=== PATIENT | female | born 1955 | race Caucasian/White ===

== ENCOUNTER 2017-10-25 10:37 | Inpatient (IN) ==
[2017-10-25] MEDS ORDERED: Sennosides 8.6 MG TABLET PO PRN ×2 (16:13→17:32)
[2017-10-25] MEDS ORDERED: LACTULOSE 10 GM PO PRN (16:13)
[2017-10-25] MEDS ORDERED: Lactulose Oral Soln 20 GM/30 ML UDC PO PRN (17:32)
--- NOTE | 2017-10-25 18:03 | Internal Med History&Physical ---
Date of Encounter: 10/25/17 Time of Encounter: 20:11 Assessment and Plan (1) S/P craniotomy Current visit: Yes Status: Acute she has an abnormal gait and expressive aphasia. she is here for rehab. will consult, pt, ot, st, PMR. (2) Oligodendroglioma Current visit: Yes Status: Acute Status post craniotomy (3) Chronic constipation Current visit: Yes Status: Acute will continue her home bowel regimen (4) Mixed hyperlipidemia Current visit: Yes Status: Acute (5) Osteoporosis Current visit: Yes Status: Acute calcium vit d Qualifiers: Osteoporosis type: unspecified Encounter type: sequela Qualified Code(s) : M80.00XS - Age-related osteoporosis with current pathological fracture, unspecified site, sequela (6) CRF (chronic renal failure) Current visit: Yes Status: Acute will follow Qualifiers: Chronic kidney disease stage: stage 2 (mild) Qualified Code(s): N18.2 - Chronic kidney disease, stage 2 (mild) (7) Expressive aphasia Current visit: Yes Status: Acute will consult speech and PMR (8) Seizure disorder Current visit: Yes Status: Acute will continue her home medication. some changes have been made at [facility]. she frequently will have seizures. they last 1-2 min. she will be unresponsive, not tonic clonic, she will have more trouble with speech after. she has been following with [facility] neuro for years. 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 Internal Medicine - H&P: HPI Chief complaint: here for rehab Admitted From: Direct Admit Plans for Post Hospital Care: Home History of present illness: Ms. Moses is a 61 year old female She came from [facility] after having a craniotomy on October 22 for an oliodendroglioma. She had it resected in 1993 and it had chemotherapy for. She then had a recurrence of the tumor and had some chemotherapy. She continued to get worse with more frequent absent seizures. She was having them daily. She has not had one since she had her craniotomy. She had some vision changes prior to the surgery does have continued and have not changed since the surgery. She currently does not have any pain. She has only had one Percocet the day of surgery for pain and none since. She has some right-sided weakness prior to surgery and that has not changed either. Prior to surgery she was living at home with someone staying with her. She is a hospital volunteer. She does not drive. She does not have tonic-clonic seizures. She has a history of chronic constipation and that has not changed. She is here for rehabilitation Past Med Surg Social Fam HX - Past Medical History Medical history: cancer (oligodendroglioma resected recurred had chemo and now with repeat craniotomy), hyperlipidemia, osteoporosis, renal disease ( asymmetric kidneys), seizures (speech, not tonic clonic), other (expressive aphasia, chronic constipation, uterine prolapse, rotator cuff, gait abnormality. cervical disc disease, colon polyps) Psychiatric history: no psych history - Past Surgical History Surgical History: orthopedic, other (right radial orif 10/25/16), other ( craniotomy 04/1994, repeat craniotomy 10/2017, colonoscopy normal 09/22/04, endometrial bx 04/29/07 colonoscopy 11/25/09 polyp, BPS 1989, cervical polyps, colonoscopy 07/21/14, ) - Social History Smoking Status: Never smoker Smokeless Tobacco Status: No Alcohol use: none Drug use: none - Family History Mother Hx Family Cardiac Disorders: Yes (htn) Hx Family Endocrine Disorder: Yes (dm) Father Living Status: Hx Family Cancer: Yes (colon) Brother Hx Family Cancer: Yes (melenoma) Internal Medicine - H&P: Meds Calcium Carbonate/Vitamin D3 [Calcium 600 + Vit D Tablet] 1 each PO BID [History] Clobazam [Onfi] 5 mg PO DAILY 10/25/16 [History] Lacosamide [Vimpat] 100 mg PO BID 10/25/16 [History] LevETIRAcetam [Keppra] 750 mg PO BID 10/25/16 [History] [place]-3/Dha/Epa/Fish Oil [Fish Oil [place]-3 EC 1,200 mg] 1,000 mg PO BID [History] Pregabalin [Lyrica] 300 mg PO BID 10/25/16 [History] lamoTRIgine [Lamotrigine] 100 mg PO BID 10/25/16 [History] Bisacodyl [Dulcolax] 5 mg PO DAILY PRN 10/25/17 [History] Cholecalciferol (Vitamin D3) [Vitamin D] 1,000 unit PO BID 10/25/17 [History] Lactulose [Enulose] 10 gm PO DAILY PRN 10/25/17 [History] Polyethylene Glycol 3350 [MiraLAX] 1 pack PO DAILY 10/25/17 [History] Sennosides [Senna] 8.6 mg PO BID PRN 10/25/17 [History] 3 Allergy/AdvReac Type Severity Reaction Status Date / Time divalproex sodium Allergy Anaphylaxis Verified 12/11/16 19:30 [From Depakote] All Systems PM: A 10-system review of systems was performed and is negative for pertinent findings except as documented above in the HPI. - Constitutional Constitutional: fatigue, falls, weakness (right sided), no fever(s) - EENT Eyes: change in vision (prior to surgery no change after surgery) Nose, mouth and throat: no sore throat - Cardiovascular Cardiovascular ROS IM: lightheadedness (with standing), no chest pain, no dyspnea, no edema, no syncope - Respiratory Respiratory: no cough, no dyspnea, no wheezing - Gastrointestinal Gastrointestinal: constipation (chronic), no diarrhea, no hematochezia, no melena, no nausea, no vomiting - Genitourinary Genitourinary: prolapse symptoms, no dysuria, no hematuria, no urinary urgency - Musculoskeletal Musculoskeletal ROS IM: no myalgias, no tingling - Integumentary Integumentary IM: no pruritus, no rash - Neurological Neurological ROS: abnormal gait, abnormal speech (but aphasia is significantly improved since the surgery) - Constitutional Vitals: Temp Pulse Resp BP Pulse Ox 97.6 F 66 16 92/66 94 10/25/17 15:55 10/25/17 15:55 10/25/17 15:55 10/25/17 15:55 10/25/17 15:55 General appearance: Present: A&O X 3, pleasant, answers questions appropriately - Head Head exam: Present: normocephalic (craniotomy scar across the top of head with morgan c/d/i) - Neck Neck exam general surgery: Present: normal inspection, supple, trachea midline. Absent: lymphadenopathy - Respiratory Respiratory exam: Present: CTAB. Absent: accessory muscle use - Cardiovascular Cardiovascular exam: Present: RRR, +S1, +S2. Absent: systolic murmur - GI/Abdominal GI/Abdominal exam: Present: distended, normal bowel sounds, soft, no peritoneal signs. Absent: tenderness - Extremities Exam Extremities exam: Present: normal capillary refill, warm. Absent: pedal edema - Neurological Exam Neurological exam: Present: speech deficit (but much improved from prior to surgery). 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 Absent: rash
[2017-10-25] MEDS: Cholecalciferol (D-3) 1,000 UNIT TABLET PO SCH (20:42)
[2017-10-25] MEDS ORDERED: LACOSAMIDE 100 MG PO SCH (21:00)
[2017-10-25] MEDS ORDERED: levETIRAcetam 250 MG TABLET PO SCH (21:00)
[2017-10-25] MEDS ORDERED: lamoTRIgine 100 MG TABLET PO ONE (21:00)
[2017-10-25 21:24] LABS: Bilirubin,Urine Negative (Negative); Blood,Urine Negative (Negative); Clarity,Urine Clear (Clear); Color,Urine Yellow (Yellow); Glucose,Urine (UA) Normal (Normal); Ketones,Urine Negative (Negative); Leukocyte Esterase,Urine Trace (Negative); Nitrite,Urine Negative (Negative); Protein,Urine Negative (Neg-Trace); Specific Gravity,Urine 1.015 (1.010-1.025); Urobilinogen,Urine Normal (Normal)
[2017-10-25 21:36] LABS: Bacteria,Urine Few per hpf (None-Few); Squamous Epithelial Cell,Urine Few per lpf (None-Few)
[2017-10-25] MEDS: levETIRAcetam 250 MG TABLET PO SCH (21:53)
[2017-10-25] MEDS: Pregabalin 75 MG CAPSULE PO SCH (21:54)
[2017-10-25] MEDS: lamoTRIgine 100 MG TABLET PO SCH (21:54)
[2017-10-25] MEDS: Famotidine 20 MG TABLET PO SCH (21:56)
[2017-10-25] MEDS: DHA PO SCH (21:57)
[2017-10-25] MEDS: EPA PO SCH (21:57)
[2017-10-25] MEDS: FISH OIL PO SCH (21:57)
[2017-10-25] MEDS: OMEGA PO SCH (21:57)
[2017-10-25] MEDS: Melatonin 3 MG TABLET PO PRN (22:01)
[2017-10-26] MEDS: *HR* Enoxaparin 40 MG/0.4 ML SYRINGE SQ SCH (05:12)
[2017-10-26 06:05] LABS: INR 1.1; Prothrombin Time 11.3 Seconds (9.4-12.1)
[2017-10-26 06:17] LABS: BUN/Creatinine Ratio 24 (6-26); Blood Urea Nitrogen 20 mg/dL (8-23); Calcium 8.8 mg/dL (8.6-10.3); Carbon Dioxide 29 mEq/L (23-29); Chloride 106 mEq/L (98-107); Glucose 114 mg/dL (70-105); Osmolality,Calculated 293 (280-300); Potassium 3.8 mEq/L (3.5-5.1); Sodium 140 mEq/L (136-145); eGFR For African Americans > 60 (> 60); eGFR For Non-African Americans > 60 (> 60)
[2017-10-26 06:22] LABS: Basophils % 0.4 %; Eosinophils % 0.2 %; Hematocrit 31.6 % (35.3-44.9); Hemoglobin 10.2 g/dL (11.5-15.4); Immature Granulocytes % 0.7 % (0-4); Lymphocytes # 0.9 K/mcL (0.6-4.6); Lymphocytes % 15.7 %; Mean Corpuscular HGB Conc 32.3 g/dL (31.6-35.5); Mean Corpuscular Hemoglobin 29.8 pg (28.0-33.3); Mean Corpuscular Volume 92.4 fL (83.0-100.0); Mean Platelet Volume 12.5 fL (9.4-12.4); Monocytes # 0.4 K/mcL (0.0-1.3); Monocytes % 6.5 %; Neutrophils # 4.3 K/mcL (1.6-8.9); Platelet Count 181 K/mcL (140-400); Red Blood Count 3.42 M/mcL (3.82-4.97); Red Cell Distribution Width 12.9 % (11.5-14.5); Segmented Neutrophils % 76.5 %
--- NOTE | 2017-10-26 08:03 | Internal Med Progress Note ---
Date of Encounter: 10/26/17 Time of Encounter: 08:03 - Assessment and plan (1) S/P craniotomy Current Visit: Yes Status: Acute Assessment and plan: Doing well, postoperatively. Participating in therapy. OT and PT are planned. (2) Oligodendroglioma Current Visit: Yes Status: Acute Assessment and plan: No seizures, postoperatively, at all. To resume monitoring and therapy as previous, as recovery continues. (3) Seizure disorder Current Visit: Yes Status: Acute Assessment and plan: As above, no seizures. Will continue with seizure precautions. (4) Chronic constipation Current Visit: Yes Status: Acute Assessment and plan: Will follow. (5) Expressive aphasia Current Visit: Yes Status: Acute Assessment and plan: No evidence, currently. - Subjective Interval history: No problems with headache, other scalp pain, etc. Asks about showering and I suggested at least 7-10 days postop. Will follow incisional progress. No troubles with lightheadedness or dizziness but does have issues with unsteady gait. Participating in therapy. She is pleased that she has had no seizures, postoperatively. She had been having them multiple times a day, before. Patient has no complaint of chest discomfort, dyspnea, orthopnea, palpitations, nausea or vomiting, constipation or diarrhea, other changes in bowel habits, difficulty with urination, rash or itching, or other new complaints. Review of systems is otherwise unremarkable. Examinatioin: (Except as mentioned above): General: In no apparent distress. Alert and oriented 3. Nondiaphoretic. Head : Atraumatic and normocephalic. Respiratory: No use of accessory muscles. Lungs are clear throughout. Normal airflow. Cardiovascular: Regular rate and rhythm without murmur appreciated. Abdomen: Bowel sounds are normal. No hepatosplenomegaly mass or tenderness appreciated. Obese and therefore difficult to palpate deeply. Extremities: No cyanosis clubbing or edema. Skin: Warm and non-diaphoretic with no new lesions noted. - Constitutional Vitals: Temp Pulse Resp BP Pulse Ox 98.6 F 75 14 96/58 95 10/26/17 04:00 10/26/17 04:00 10/26/17 04:00 10/26/17 04:00 10/26/17 04:00 General appearance: Present: A&O X 3, pleasant, answers questions appropriately - Head Head exam: Present: atraumatic, normal inspection, normocephalic Additional comments: No sign of erythema, drainage, other indications of cellulitis or wound infection. - Respiratory Respiratory exam: Present: CTAB. Absent: accessory muscle use - Cardiovascular Cardiovascular exam: Present: RRR. Absent: diastolic murmur, systolic murmur - GI/Abdominal GI/Abdominal exam: Present: normal bowel sounds, soft. Absent: hepatomegaly, mass, splenomegaly, tenderness - Extremities Exam Extremities exam: Present: normal capillary refill, warm. Absent: calf tenderness, pedal edema - Neurological Exam Neurological exam: Present: CN II-XII intact, oriented X3. Absent: pronater drift, facial droop, speech deficit - Skin Skin exam: Present: dry, warm Internal Medicine: Result - Labs CBC & Chem 7: 10/26/17 05:40 10/26/17 05:40 Labs: Short CBC 10/26/17 Range/Units 05:40 WBC 5.7 (4.3-11.1) K/mcL Hgb 10.2 L (11.5-15.4) g/dL Hct 31.6 L (35.3-44.9) % Plt Count 181 (140-400) K/mcL Neutrophils # 4.3 (1.6-8.9) K/mcL BMP 10/26/17 05:40 Sodium 140 Potassium 3.8 Chloride 106 Carbon Dioxide 29 BUN 20 Creatinine 0.85 Glucose 114 H Calcium 8.8 Urine 10/25/17 Range/Units 21:20 Urine Color Yellow (Yellow) Urine Clarity Clear (Clear) Urine pH 6.0 (5.0-8.0) pH Units Ur Specific [place] 1.015 (1.010-1.025) Urine Protein Negative (Neg-Trace) mg/dL Urine Glucose (UA) Normal (Normal) mg/dL - ABG Interpretation ABG results: PT/INR, D-dimer PT 11.3 Seconds (9.4-12.1) 10/26/17 05:40 Consult Discharge Plan - Plan Referrals: Arlyn Espinal MD [Primary Care Provider] -
[2017-10-26] MEDS: Cholecalciferol (D-3) 1,000 UNIT TABLET PO SCH (09:43)
[2017-10-26] MEDS: levETIRAcetam 250 MG TABLET PO SCH ×4 (09:44→21:01)
[2017-10-26] MEDS: Pregabalin 75 MG CAPSULE PO SCH ×2 (09:44→21:02)
[2017-10-26] MEDS: Famotidine 20 MG TABLET PO SCH ×2 (09:44→16:21)
[2017-10-26] MEDS: lamoTRIgine 100 MG TABLET PO SCH ×2 (09:45→21:02)
[2017-10-26] MEDS: EPA PO SCH ×2 (09:47→21:08)
[2017-10-26] MEDS: FISH OIL PO SCH ×2 (09:47→21:08)
[2017-10-26] MEDS: Clobazam [Onfi] 10 MG PO SCH (09:47)
[2017-10-26] MEDS: DHA PO SCH ×2 (09:47→21:08)
[2017-10-26] MEDS: OMEGA PO SCH ×2 (09:47→21:08)
[2017-10-27] MEDS: *HR* Enoxaparin 40 MG/0.4 ML SYRINGE SQ SCH (05:02)
[2017-10-27] MEDS: Famotidine 20 MG TABLET PO SCH ×2 (06:32→17:26)
[2017-10-27] MEDS: Acetaminophen 325 MG TABLET PO PRN (06:33)
[2017-10-27] MEDS: Pregabalin 75 MG CAPSULE PO SCH ×2 (08:44→20:41)
[2017-10-27] MEDS: levETIRAcetam 250 MG TABLET PO SCH ×4 (08:44→20:39)
[2017-10-27] MEDS: FISH OIL PO SCH ×2 (08:48→20:42)
[2017-10-27] MEDS: OMEGA PO SCH ×2 (08:48→20:42)
[2017-10-27] MEDS: DHA PO SCH ×2 (08:48→20:42)
[2017-10-27] MEDS: EPA PO SCH ×2 (08:48→20:42)
[2017-10-27] MEDS: lamoTRIgine 100 MG TABLET PO SCH (08:49)
[2017-10-27] MEDS: Cholecalciferol (D-3) 1,000 UNIT TABLET PO SCH (08:50)
[2017-10-27] MEDS: Clobazam [Onfi] 10 MG PO SCH (08:50)
--- NOTE | 2017-10-27 17:52 | Internal Med Progress Note ---
Date of Encounter: 10/27/17 Time of Encounter: 17:51 - Assessment and plan (1) S/P craniotomy Current Visit: Yes Status: Acute Assessment and plan: Doing well, postoperatively. Participating in therapy as planned. (2) Oligodendroglioma Current Visit: Yes Status: Acute Assessment and plan: No seizures reported. (3) Seizure disorder Current Visit: Yes Status: Acute Assessment and plan: As above, no seizures. Will continue with seizure precautions. Medication adjustments as noted above, per her request. (4) Chronic constipation Current Visit: Yes Status: Acute Assessment and plan: We will use a Dulcolax suppository daily for 3 days, per her request. This will be on an as-needed basis (5) Expressive aphasia Current Visit: Yes Status: Acute Assessment and plan: No evidence, currently. - Time Spent With Patient 25 - 35 minutes - Subjective Interval history: Patient is feeling constipated and has had only 3 small hard fragments of bowel movement. She would very much like a suppository and I told her we would order. She still feeling unsteady and feels it is related to her medications. She would like to have her Lamictal return to her home dose. I agreed to do this. We discussed several other medications including her Pepcid that she took only on an as-needed basis home. I agreed to return this to as needed status. Patient has no complaint of chest discomfort, dyspnea, orthopnea, palpitations, nausea or vomiting, constipation or diarrhea, other changes in bowel habits, difficulty with urination, rash or itching, or other new complaints. Review of systems is otherwise unremarkable. - Constitutional Vitals: Temp Pulse Resp BP Pulse Ox 98.2 F 63 16 104/67 96 10/27/17 08:00 10/27/17 08:00 10/27/17 08:00 10/27/17 08:00 10/27/17 08:00 General appearance: Present: A&O X 3, pleasant, answers questions appropriately Exam: Examinatioin: (Except as mentioned above): General: In no apparent distress. Alert and oriented 3. Nondiaphoretic. Head: Atraumatic and normocephalic. Postsurgical, dry and intact wound. Rafael as noted previously. Respiratory: No use of accessory muscles. Lungs are clear throughout. Normal airflow. Cardiovascular: Regular rate and rhythm without murmur appreciated. Abdomen: Bowel sounds are normal. No hepatosplenomegaly mass or tenderness appreciated. Obese and therefore difficult to palpate deeply. Extremities: No cyanosis clubbing or edema. Skin: Warm and non-diaphoretic with no new lesions noted. Internal Medicine: Result - Labs CBC & Chem 7: 10/26/17 05:40 10/26/17 05:40 - ABG Interpretation ABG results: PT/INR, D-dimer PT 11.3 Seconds (9.4-12.1) 10/26/17 05:40 Consult Discharge Plan - Plan Referrals: Arlyn Espinal MD [Primary Care Provider] -
[2017-10-27] MEDS ORDERED: Bisacodyl 10 MG RECTAL SUPPOSITORY RC PRN (19:23)
[2017-10-27] MEDS ORDERED: lamoTRIgine 100 MG TABLET PO ONE (21:00)
[2017-10-27] MEDS ORDERED: lamoTRIgine 100 MG TABLET PO SCH (21:00)
[2017-10-28] MEDS: *HR* Enoxaparin 40 MG/0.4 ML SYRINGE SQ SCH (05:12)
--- NOTE | 2017-10-28 08:30 | Internal Med Progress Note ---
Date of Encounter: 10/28/17 Time of Encounter: 08:30 - Assessment and plan (1) S/P craniotomy Current Visit: Yes Status: Acute Assessment and plan: Doing well, postoperatively. Participating in therapy as planned. d/c when she meets goals to be safe at home (2) Oligodendroglioma Current Visit: Yes Status: Acute Assessment and plan: No seizures reported since surgery (3) Chronic constipation Current Visit: Yes Status: Acute Assessment and plan: We will use a Dulcolax suppository daily for 3 days, per her request. This will be on an as-needed basis. she did have a large stool yesterday and feels better (4) Mixed hyperlipidemia Current Visit: Yes Status: Acute (5) Osteoporosis Current Visit: Yes Status: Acute Qualifiers: Osteoporosis type: unspecified Encounter type: sequela Qualified Code(s) : M80.00XS - Age-related osteoporosis with current pathological fracture, unspecified site, sequela (6) CRF (chronic renal failure) Current Visit: Yes Status: Acute Assessment and plan: renal function in range on last labs Qualifiers: Chronic kidney disease stage: stage 2 (mild) Qualified Code(s): N18.2 - Chronic kidney disease, stage 2 (mild) (7) Expressive aphasia Current Visit: Yes Status: Acute Assessment and plan: much improved since surgery ST. (8) Seizure disorder Current Visit: Yes Status: Acute Assessment and plan: As above, no seizures. Will continue with seizure precautions. Medication adjustments as noted above, per her request.she is osmel tired with lowering the dose - Subjective Interval history: she has been doing well no pain. she is in the dining room for breakfast. she did have a large stool and feels better. no n/v, no sob, no cp, no dysuria. using the walker. she was getting too sleepy with the new lamictal dose. she has not had a seizure since surg and was having daily prior to surg when the medication was increased. the dose was lowered yesterday. will continue to follow - Constitutional Vitals: Temp Pulse Resp BP Pulse Ox 98.4 F 78 19 100/68 94 10/28/17 05:56 10/28/17 05:56 10/28/17 05:56 10/28/17 05:56 10/28/17 05:56 General appearance: Present: A&O X 3, pleasant, answers questions appropriately - Head Head exam: Absent: atraumatic (surgical incision with morgan c/d/i) - Neck Neck exam general surgery: Present: supple, trachea midline - Respiratory Respiratory exam: Present: CTAB - Cardiovascular Cardiovascular exam: Present: RRR. Absent: systolic murmur - GI/Abdominal GI/Abdominal exam: Present: mass, normal bowel sounds, soft, no peritoneal signs. Absent: distended - Extremities Exam Extremities exam: Present: normal capillary refill, warm. Absent: pedal edema - Skin Skin exam: Present: dry, warm Internal Medicine: Result - Labs CBC & Chem 7: 10/26/17 05:40 10/26/17 05:40 - ABG Interpretation ABG results: PT/INR, D-dimer PT 11.3 Seconds (9.4-12.1) 10/26/17 05:40 Consult Discharge Plan - Plan Referrals: Arlyn Espinal MD [Primary Care Provider] -
[2017-10-28] MEDS: Pregabalin 75 MG CAPSULE PO SCH ×2 (08:53→21:33)
[2017-10-28] MEDS: Cholecalciferol (D-3) 1,000 UNIT TABLET PO SCH (08:54)
[2017-10-28] MEDS: levETIRAcetam 250 MG TABLET PO SCH ×4 (08:54→21:32)
[2017-10-28] MEDS: DHA PO SCH (08:56)
[2017-10-28] MEDS: FISH OIL PO SCH (08:56)
[2017-10-28] MEDS: OMEGA PO SCH (08:56)
[2017-10-28] MEDS: EPA PO SCH (08:56)
[2017-10-28] MEDS: Famotidine 20 MG TABLET PO PRN (09:31)
[2017-10-28] MEDS: Clobazam [Onfi] 10 MG PO SCH (09:32)
--- NOTE | 2017-10-28 17:06 | Physcial Medicine-Consult Note ---
Date of Encounter: 10/28/17 Time of Encounter: 15:05 Physical Medicine - HPI - Data of Consult Requesting Physician: Arlyn Espinal, Primary Care Provider: Arlyn Espinal, - Consult Narrative History of present illness: Ms. Moses is a 61 year old female with Glioma. She had a surgical resection in 2003. Over the last year she had increase seizures and increase in unsteady gait with falling. She was found to have recurrent glioma and had resection on . She was found to have poor right sided control, and aphasia, expressive more than receptive. She has chronic constipation and moved her bowels last night. She denies any visual change or numbness. CC: Arlyn Espinal, Past Med Surg Social Fam HX - Past Medical History Attestation: Yes The following information was validated with the patient. Medical history: cancer (oligodendroglioma resected recurred had chemo and now with repeat craniotomy), hyperlipidemia, osteoporosis, renal disease ( asymmetric kidneys), seizures (speech, not tonic clonic), other (expressive aphasia, chronic constipation, uterine prolapse, rotator cuff, gait abnormality. cervical disc disease, colon polyps) Psychiatric history: no psych history - Past Surgical History Surgical History: orthopedic, other (right radial orif 10/25/16), other ( craniotomy 04/1994, repeat craniotomy 10/2017, colonoscopy normal 09/22/04, endometrial bx 04/29/07 colonoscopy 11/25/09 polyp, BPS 1989, cervical polyps, colonoscopy 07/21/14, ) - Social History Smoking Status: Never smoker Smokeless Tobacco Status: No Alcohol use: none Drug use: none - Family History Mother Hx Family Cardiac Disorders: Yes (htn) Hx Family Endocrine Disorder: Yes (dm) Father Living Status: Hx Family Cancer: Yes (colon) Brother Hx Family Cancer: Yes (melenoma) Medications and Allergies Calcium Carbonate/Vitamin D3 [Calcium 600 + Vit D Tablet] 1 each PO BID [History] Clobazam [Onfi] 5 mg PO DAILY 10/25/16 [History] Lacosamide [Vimpat] 50 mg PO QID 10/25/16 [History] LevETIRAcetam [Keppra] 750 mg PO QID 10/25/16 [History] [place]-3/Dha/Epa/Fish Oil [Fish Oil [place]-3 EC 1,200 mg] 1,000 mg PO BID [History] Pregabalin [Lyrica] 300 mg PO BID 10/25/16 [History] lamoTRIgine [Lamotrigine] 100 mg PO BID 10/25/16 [History] Bisacodyl [Dulcolax] 5 mg PO DAILY PRN 10/25/17 [History] Cholecalciferol (Vitamin D3) [Vitamin D] 1,000 unit PO BID 10/25/17 [History] Lactulose [Enulose] 10 gm PO DAILY PRN 10/25/17 [History] Polyethylene Glycol 3350 [MiraLAX] 1 pack PO DAILY 10/25/17 [History] Sennosides [Senna] 8.6 mg PO BID PRN 10/25/17 [History] 3 Allergy/AdvReac Type Severity Reaction Status Date / Time divalproex sodium Allergy Anaphylaxis Verified 12/11/16 19:30 [From [facility]] All systems: reviewed and no additional remarkable complaints except as stated ( Trouble with balance and aphasia.) Physical Medicine - Exam - Constitutional Vitals: Temp Pulse Resp BP Pulse Ox 98.4 F 78 19 100/68 94 10/28/17 05:56 10/28/17 10:19 10/28/17 10:19 10/28/17 10:19 10/28/17 10:19 - Head Additional comments: 20 morgan in left occipital to vertex. - Extremities Exam Extremities exam: Present: full ROM, normal inspection - Neurological Exam Neurological exam: Present: abnormal gait, alert, CN II-XII intact, oriented X3 , strengths equal and symetr throughout - Psychiatric Psychiatric exam: Present: normal affect, normal mood - Skin Skin exam: Present: intact Physical Medicine - Results - Labs CBC & Chem 7: 10/26/17 05:40 10/26/17 05:40 Consult Discharge Plan - Plan Referrals: Arlyn Espinal MD [Primary Care Provider] -
--- NOTE | 2017-10-28 17:20 | Physcial Medicine-Consult Note ---
Date of Encounter: 10/28/17 Time of Encounter: 15:05 Physical Medicine - AP (1) Chronic constipation Status: Acute Assessment and plan: Bowel program. Goal is for BM every third day or less. Code(s): K59.09 - Other constipation SNOMED Code(s): 581564695 (2) Expressive aphasia Comments: Continue speech therapy Status: Acute Code(s): R47.01 - Aphasia SNOMED Code(s): 174428382 (3) Oligodendroglioma Comments: Brain injury with poor balance, impaired right sided control, global aphasia, expressive worse than receptive. Status: Acute Code(s): C71.9 - Malignant neoplasm of brain, unspecified SNOMED Code(s): 988306442 Physical Medicine - HPI - Data of Consult Requesting Physician: Arlyn Espinal, Primary Care Provider: Arlyn Espinal, - Consult Narrative History of present illness: Ms. Moses is a 61 year old female CC: Arlyn Espinal, Past Med Surg Social Fam HX - Past Medical History Medical history: cancer (oligodendroglioma resected recurred had chemo and now with repeat craniotomy), hyperlipidemia, osteoporosis, renal disease ( asymmetric kidneys), seizures (speech, not tonic clonic), other (expressive aphasia, chronic constipation, uterine prolapse, rotator cuff, gait abnormality. cervical disc disease, colon polyps) Psychiatric history: no psych history - Past Surgical History Surgical History: orthopedic, other (right radial orif 10/25/16), other ( craniotomy 04/1994, repeat craniotomy 10/2017, colonoscopy normal 09/22/04, endometrial bx 04/29/07 colonoscopy 11/25/09 polyp, BPS 1989, cervical polyps, colonoscopy 07/21/14, ) - Social History Smoking Status: Never smoker Smokeless Tobacco Status: No Alcohol use: none Drug use: none - Family History Mother Hx Family Cardiac Disorders: Yes (htn) Hx Family Endocrine Disorder: Yes (dm) Father Living Status: Hx Family Cancer: Yes (colon) Brother Hx Family Cancer: Yes (melenoma) Medications and Allergies Calcium Carbonate/Vitamin D3 [Calcium 600 + Vit D Tablet] 1 each PO BID [History] Clobazam [Onfi] 5 mg PO DAILY 10/25/16 [History] Lacosamide [Vimpat] 50 mg PO QID 10/25/16 [History] LevETIRAcetam [Keppra] 750 mg PO QID 10/25/16 [History] [place]-3/Dha/Epa/Fish Oil [Fish Oil [place]-3 EC 1,200 mg] 1,000 mg PO BID [History] Pregabalin [Lyrica] 300 mg PO BID 10/25/16 [History] lamoTRIgine [Lamotrigine] 100 mg PO BID 10/25/16 [History] Bisacodyl [Dulcolax] 5 mg PO DAILY PRN 10/25/17 [History] Cholecalciferol (Vitamin D3) [Vitamin D] 1,000 unit PO BID 10/25/17 [History] Lactulose [Enulose] 10 gm PO DAILY PRN 10/25/17 [History] Polyethylene Glycol 3350 [MiraLAX] 1 pack PO DAILY 10/25/17 [History] Sennosides [Senna] 8.6 mg PO BID PRN 10/25/17 [History] 3 Allergy/AdvReac Type Severity Reaction Status Date / Time divalproex sodium Allergy Anaphylaxis Verified 12/11/16 19:30 [From [facility]] Physical Medicine - Exam - Constitutional Vitals: Temp Pulse Resp BP Pulse Ox 98.4 F 78 19 100/68 94 10/28/17 05:56 10/28/17 10:19 10/28/17 10:19 10/28/17 10:19 10/28/17 10:19 Physical Medicine - Results - Labs CBC & Chem 7: 10/26/17 05:40 10/26/17 05:40 Labs: Anemia Consult Discharge Plan - Plan Referrals: Arlyn Espinal MD [Primary Care Provider] -
[2017-10-28] MEDS: lamoTRIgine 100 MG TABLET PO SCH (21:32)
[2017-10-29] MEDS: *HR* Enoxaparin 40 MG/0.4 ML SYRINGE SQ SCH (05:36)
[2017-10-29] MEDS: Cholecalciferol (D-3) 1,000 UNIT TABLET PO SCH (08:36)
[2017-10-29] MEDS: Clobazam [Onfi] 10 MG PO SCH (08:36)
[2017-10-29] MEDS: levETIRAcetam 250 MG TABLET PO SCH ×4 (08:36→20:25)
[2017-10-29] MEDS: Pregabalin 75 MG CAPSULE PO SCH ×2 (08:36→20:26)
[2017-10-29] MEDS: Famotidine 20 MG TABLET PO PRN (08:37)
--- NOTE | 2017-10-29 19:29 | Internal Med Progress Note ---
Date of Encounter: 10/29/17 Time of Encounter: 16:15 - Assessment and plan (1) S/P craniotomy Current Visit: Yes Status: Acute Assessment and plan: here for pt/ot (2) Oligodendroglioma Current Visit: Yes Status: Acute Assessment and plan: path is pending. she will likely get at her f/u appt (3) Chronic constipation Current Visit: Yes Status: Acute Assessment and plan: better after the supp. (4) Mixed hyperlipidemia Current Visit: Yes Status: Acute (5) Osteoporosis Current Visit: Yes Status: Acute Qualifiers: Osteoporosis type: unspecified Encounter type: sequela Qualified Code(s) : M80.00XS - Age-related osteoporosis with current pathological fracture, unspecified site, sequela (6) CRF (chronic renal failure) Current Visit: Yes Status: Acute Qualifiers: Chronic kidney disease stage: stage 2 (mild) Qualified Code(s): N18.2 - Chronic kidney disease, stage 2 (mild) (7) Expressive aphasia Current Visit: Yes Status: Acute Assessment and plan: continue ST (8) Seizure disorder Current Visit: Yes Status: Acute Assessment and plan: doing ok with the current medication dose. will cont. no seizure since surgery will continue seizure precautions - Subjective Interval history: she has been doing well no pain. She has been getting up walking about the room without assistance for getting to hit her call light before getting up. discussed that she needs to call for assistance to get up. her speech is so much better. she is getting around with the walker. no cp, no palp,no sob, no n/v, abd better after large stool 2 days ago - Constitutional Vitals: Temp Pulse Resp BP Pulse Ox 98.3 F 74 16 86/58 97 10/29/17 09:14 10/29/17 09:14 10/29/17 09:14 10/29/17 09:14 10/29/17 09:14 General appearance: Present: A&O X 3, pleasant, answers questions appropriately - Head Head exam: Present: atraumatic (incision c/d/i with the morgan) - Neck Neck exam general surgery: Present: supple, trachea midline. Absent: lymphadenopathy, tenderness - Respiratory Respiratory exam: Present: CTAB - Cardiovascular Cardiovascular exam: Present: RRR. Absent: systolic murmur - Extremities Exam Extremities exam: Present: normal capillary refill. Absent: mottling, pedal edema - Skin Skin exam: Present: dry, warm Internal Medicine: Result - Labs CBC & Chem 7: 10/26/17 05:40 10/26/17 05:40 - ABG Interpretation ABG results: PT/INR, D-dimer PT 11.3 Seconds (9.4-12.1) 10/26/17 05:40 Consult Discharge Plan - Plan Referrals: Arlyn Espinal MD [Primary Care Provider] -
[2017-10-29] MEDS: lamoTRIgine 100 MG TABLET PO SCH (20:25)
[2017-10-30] MEDS: *HR* Enoxaparin 40 MG/0.4 ML SYRINGE SQ SCH (05:01)
[2017-10-30] MEDS: Cholecalciferol (D-3) 1,000 UNIT TABLET PO SCH (09:43)
[2017-10-30] MEDS: levETIRAcetam 250 MG TABLET PO SCH ×4 (09:44→20:40)
[2017-10-30] MEDS: Pregabalin 75 MG CAPSULE PO SCH ×2 (09:44→20:42)
[2017-10-30] MEDS: Clobazam [Onfi] 10 MG PO SCH (09:44)
--- NOTE | 2017-10-30 18:21 | Physical Med Progress Note ---
Date of Encounter: 10/30/17 Time of Encounter: 15:50 Assessment and Plan (1) Chronic constipation Current Visit: Yes Status: Acute Assessment and plan: Bowel program (2) Expressive aphasia Current Visit: Yes Status: Acute Assessment and plan: Continue speech therapy. May be worthwhile to refer for cognitive performance testing with neuropsych (3) Oligodendroglioma Current Visit: Yes Status: Acute Assessment and plan: Post op brain impairment Physical Medicine-PN: Subj Interval history: No c/o. Feels good. - Constitutional Vitals: Vital Signs Temp Pulse Resp BP Pulse Ox 10/30/17 07:07 97.6 F 70 16 107/71 98 10/29/17 19:30 98.3 F 79 18 125/73 97 Intake and Output 10/30/17 10/30/17 10/30/17 07:59 15:59 23:59 Intake Total 240 / 240 Balance 240 / 240 Intake: Oral 240 / 240 Other: Meal Breakfast Percent of Meal Consumed 100% # Voids 1 1 - Neurological Exam Neurological exam: Present: alert, strengths equal and symetr throughout Additional comments: ADL at standby assist. Amb 340feet without device. Supervision for balance/ safety. 60% accurate with organizing pill box. Marginal carryover due to poor short term memory. Poor higher level/executive cognition. Physical Medicine-PN: Obj Data - Labs CBC & Chem 7: 10/26/17 05:40 10/26/17 05:40 Labs: Anemia - ABG Interpretation ABG results: PT/INR, D-dimer PT 11.3 Seconds (9.4-12.1) 10/26/17 05:40 - VTE Documentation of Mechanical Device: Graduated compression elastic hosiery Consult Discharge Plan - Plan Referrals: Arlyn Espinal MD [Primary Care Provider] -
[2017-10-30] MEDS: lamoTRIgine 100 MG TABLET PO SCH (20:41)
[2017-10-31] MEDS: *HR* Enoxaparin 40 MG/0.4 ML SYRINGE SQ SCH (04:53)
--- NOTE | 2017-10-31 08:29 | Internal Med Progress Note ---
Date of Encounter: 10/31/17 Time of Encounter: 08:29 - Assessment and plan (1) Chronic constipation Current Visit: Yes Status: Acute Assessment and plan: ok currently this is a chronic problem fo rher (2) Expressive aphasia Current Visit: Yes Status: Acute Assessment and plan: continue ST it has improved (3) Oligodendroglioma Current Visit: Yes Status: Acute Assessment and plan: path is pending. she will likely get at her f/u appt - Subjective Interval history: she has been doing well no pain. she has been waiting for assistance to get up. her speech is so much better. she is getting around with the walker. no cp , no palp,no sob, no n/v, , no complaints today - Constitutional Vitals: Temp Pulse Resp BP Pulse Ox 98.1 F 70 16 95/60 96 10/31/17 07:00 10/31/17 07:00 10/31/17 07:00 10/31/17 07:00 10/31/17 07:00 General appearance: Present: A&O X 3, pleasant, answers questions appropriately - Head Head exam: Absent: normocephalic (incision c/d/i with morgan) - Neck Neck exam general surgery: Present: supple, trachea midline - Respiratory Respiratory exam: Present: CTAB - Cardiovascular Cardiovascular exam: Present: RRR. Absent: systolic murmur - GI/Abdominal GI/Abdominal exam: Present: soft, no peritoneal signs. Absent: distended, tenderness - Extremities Exam Extremities exam: Present: warm. Absent: pedal edema - Skin Skin exam: Present: dry, warm. Absent: rash Internal Medicine: Result - Labs CBC & Chem 7: 10/26/17 05:40 10/26/17 05:40 - ABG Interpretation ABG results: PT/INR, D-dimer PT 11.3 Seconds (9.4-12.1) 10/26/17 05:40 - VTE Documentation of Mechanical Device: Graduated compression elastic hosiery Consult Discharge Plan - Plan Referrals: Arlyn Espinal MD [Primary Care Provider] -
[2017-10-31] MEDS: Pregabalin 75 MG CAPSULE PO SCH ×2 (09:13→21:13)
[2017-10-31] MEDS: Cholecalciferol (D-3) 1,000 UNIT TABLET PO SCH (09:13)
[2017-10-31] MEDS: levETIRAcetam 250 MG TABLET PO SCH ×4 (09:13→21:12)
[2017-10-31] MEDS: Clobazam [Onfi] 10 MG PO SCH (09:14)
[2017-10-31] MEDS: lamoTRIgine 100 MG TABLET PO SCH (21:13)
[2017-11-01] MEDS: *HR* Enoxaparin 40 MG/0.4 ML SYRINGE SQ SCH (05:28)
[2017-11-01] MEDS: levETIRAcetam 250 MG TABLET PO SCH ×4 (10:09→21:04)
[2017-11-01] MEDS: Pregabalin 75 MG CAPSULE PO SCH ×2 (10:10→21:08)
[2017-11-01] MEDS: Cholecalciferol (D-3) 1,000 UNIT TABLET PO SCH (10:10)
[2017-11-01] MEDS: Clobazam [Onfi] 10 MG PO SCH (10:13)
[2017-11-01] MEDS: lamoTRIgine 100 MG TABLET PO SCH (21:05)
[2017-11-02] MEDS: *HR* Enoxaparin 40 MG/0.4 ML SYRINGE SQ SCH (05:12)
[2017-11-02] MEDS: Pregabalin 75 MG CAPSULE PO SCH ×2 (09:34→22:17)
[2017-11-02] MEDS: levETIRAcetam 250 MG TABLET PO SCH ×4 (09:34→22:21)
[2017-11-02] MEDS: Acetaminophen 325 MG TABLET PO PRN ×2 (09:35→22:16)
[2017-11-02] MEDS: Cholecalciferol (D-3) 1,000 UNIT TABLET PO SCH (09:35)
[2017-11-02] MEDS: Clobazam [Onfi] 10 MG PO SCH (09:37)
--- NOTE | 2017-11-02 15:31 | Internal Med Progress Note ---
Date of Encounter: 11/02/17 Time of Encounter: 15:29 - Assessment and plan (1) Chronic constipation Current Visit: Yes Status: Acute Assessment and plan: better (2) Expressive aphasia Current Visit: Yes Status: Acute Assessment and plan: continue ST (3) Oligodendroglioma Current Visit: Yes Status: Acute Assessment and plan: path is pending. she will likely get at her f/u appt - Subjective Interval history: she has been doing well no pain. her speech is so much better. she is getting around with the walker. no cp, no palp,no sob, no n/v, , no complaints today, bowels are ok - Constitutional Vitals: Temp Pulse Resp BP Pulse Ox 97.8 F 81 15 108/64 98 11/01/17 19:00 11/01/17 19:00 11/01/17 19:00 11/01/17 19:00 11/01/17 19:00 General appearance: Present: A&O X 3, pleasant, answers questions appropriately - Head Head exam: Present: normocephalic (incision c/d/i) - Neck Neck exam general surgery: Present: supple, trachea midline. Absent: lymphadenopathy - Respiratory Respiratory exam: Present: CTAB - Cardiovascular Cardiovascular exam: Present: RRR, +S1, +S2. Absent: systolic murmur - GI/Abdominal GI/Abdominal exam: Present: normal bowel sounds, soft, no peritoneal signs. Absent: distended, guarding, tenderness - Extremities Exam Extremities exam: Present: warm. Absent: mottling, pedal edema - Incison Incision: Present: clean and dry, intact - Skin Skin exam: Present: dry, warm. Absent: rash Internal Medicine: Result - Labs CBC & Chem 7: 10/26/17 05:40 10/26/17 05:40 - ABG Interpretation ABG results: PT/INR, D-dimer PT 11.3 Seconds (9.4-12.1) 10/26/17 05:40 - VTE Documentation of Mechanical Device: Graduated compression elastic hosiery Consult Discharge Plan - Plan Referrals: Arlyn Espinal MD [Primary Care Provider] -
[2017-11-02] MEDS: Melatonin 3 MG TABLET PO PRN (22:18)
[2017-11-02] MEDS: lamoTRIgine 100 MG TABLET PO SCH (22:22)
[2017-11-03] MEDS: *HR* Enoxaparin 40 MG/0.4 ML SYRINGE SQ SCH (06:05)
[2017-11-03] MEDS: levETIRAcetam 250 MG TABLET PO SCH ×4 (11:09→21:41)
[2017-11-03] MEDS: Pregabalin 75 MG CAPSULE PO SCH ×2 (11:10→21:46)
[2017-11-03] MEDS: Cholecalciferol (D-3) 1,000 UNIT TABLET PO SCH (11:10)
[2017-11-03] MEDS: Clobazam [Onfi] 10 MG PO SCH (11:10)
[2017-11-03] MEDS: Melatonin 3 MG TABLET PO PRN (21:41)
[2017-11-03] MEDS: lamoTRIgine 100 MG TABLET PO SCH (21:44)
[2017-11-04] MEDS: *HR* Enoxaparin 40 MG/0.4 ML SYRINGE SQ SCH (05:45)
[2017-11-04] MEDS: Pregabalin 75 MG CAPSULE PO SCH ×2 (08:46→20:51)
[2017-11-04] MEDS: Cholecalciferol (D-3) 1,000 UNIT TABLET PO SCH (08:47)
[2017-11-04] MEDS: levETIRAcetam 250 MG TABLET PO SCH ×4 (08:47→20:49)
[2017-11-04] MEDS: Clobazam [Onfi] 10 MG PO SCH (08:47)
--- NOTE | 2017-11-04 15:04 | Internal Med Progress Note ---
Date of Encounter: 11/04/17 Time of Encounter: 08:15 - Assessment and plan (1) Chronic constipation Current Visit: Yes Status: Acute Assessment and plan: better (2) Expressive aphasia Current Visit: Yes Status: Acute Assessment and plan: continue ST (3) Oligodendroglioma Current Visit: Yes Status: Acute Assessment and plan: path is pending. she will likely get at her f/u appt (4) S/P craniotomy Current Visit: Yes Status: Acute Assessment and plan: here for pt/ot (5) Seizure disorder Current Visit: Yes Status: Acute Assessment and plan: doing ok with the current medication dose. will cont. one seizure since surgery will continue seizure precautions - Subjective Interval history: she has been doing well no pain. . she is getting around with the walker. no cp, no palp,no sob, no n/v, , no complaints today, bowels are ok, likely d/c saturday if she meets her goals - Constitutional Vitals: Temp Pulse Resp BP Pulse Ox 97.6 F 71 16 138/78 96 11/04/17 07:24 11/04/17 07:24 11/04/17 07:24 11/04/17 07:24 11/04/17 07:24 General appearance: Present: A&O X 3, pleasant, answers questions appropriately - Head Head exam: Present: normocephalic (incision c/d/i but not quite approximated medial) - Neck Neck exam general surgery: Present: supple, trachea midline - Respiratory Respiratory exam: Present: CTAB - Cardiovascular Cardiovascular exam: Present: RRR. Absent: systolic murmur - GI/Abdominal GI/Abdominal exam: Present: normal bowel sounds, soft, no peritoneal signs. Absent: guarding, mass, tenderness - Extremities Exam Extremities exam: Present: warm. Absent: pedal edema - Skin Skin exam: Present: dry, warm. Absent: rash Internal Medicine: Result - Labs CBC & Chem 7: 10/26/17 05:40 10/26/17 05:40 - ABG Interpretation ABG results: PT/INR, D-dimer PT 11.3 Seconds (9.4-12.1) 10/26/17 05:40 - VTE Documentation of Mechanical Device: Graduated compression elastic hosiery Consult Discharge Plan - Plan Referrals: Arlyn Espinal MD [Primary Care Provider] -
[2017-11-04] MEDS: Melatonin 3 MG TABLET PO PRN (20:48)
[2017-11-04] MEDS: lamoTRIgine 100 MG TABLET PO SCH (20:50)
--- NOTE | 2017-11-04 21:01 | Physical Med Progress Note ---
Date of Encounter: 11/04/17 Time of Encounter: 17:00 Assessment and Plan (1) Chronic constipation Current Visit: Yes Status: Acute (2) Expressive aphasia Current Visit: Yes Status: Acute (3) Oligodendroglioma Current Visit: Yes Status: Acute Assessment and plan: Finishing up rehab. Team recs 24hr. supervision for safety. Physical Medicine-PN: Subj Interval history: No c/o. Looking forward to going home. No headache or diplopia. Ocasional word finding problem. - Constitutional Vitals: Vital Signs Temp Pulse Resp BP Pulse Ox 11/04/17 19:10 98.1 F 89 16 97/56 96 11/04/17 07:24 97.6 F 71 16 138/78 96 Intake and Output 11/04/17 11/04/17 11/04/17 07:59 15:59 23:59 Intake Total 600 / 600 Balance 600 / 600 Intake: Oral 600 / 600 Other: Meal Lunch Percent of Meal Consumed 100% # Voids 1 1 - Head Additional comments: Staple line looks good. No erythema or infection. - Extremities Exam Extremities exam: Present: normal inspection Additional comments: 4/5 strength. Contact guard sit to stand unsteady. Ambulates 150' WWKR - Neurological Exam Neurological exam: Present: abnormal gait, alert, CN II-XII intact, oriented X3 , reflexes normal, strengths equal and symetr throughout - Psychiatric Psychiatric exam: Present: normal affect, normal mood, suicidal ideation - Skin Skin exam: Present: normal color Physical Medicine-PN: Obj Data - Labs CBC & Chem 7: 10/26/17 05:40 10/26/17 05:40 Labs: Anemia - ABG Interpretation ABG results: PT/INR, D-dimer PT 11.3 Seconds (9.4-12.1) 10/26/17 05:40 - VTE Documentation of Mechanical Device: Graduated compression elastic hosiery Consult Discharge Plan - Plan Referrals: Arlyn Espinal MD [Primary Care Provider] -
[2017-11-05] MEDS: *HR* Enoxaparin 40 MG/0.4 ML SYRINGE SQ SCH (05:06)
[2017-11-05] MEDS: levETIRAcetam 250 MG TABLET PO SCH ×4 (09:35→21:33)
[2017-11-05] MEDS: Cholecalciferol (D-3) 1,000 UNIT TABLET PO SCH (09:35)
[2017-11-05] MEDS: Pregabalin 75 MG CAPSULE PO SCH ×2 (09:35→21:35)
[2017-11-05] MEDS: Clobazam [Onfi] 10 MG PO SCH (09:36)
[2017-11-05] MEDS: lamoTRIgine 100 MG TABLET PO SCH (21:34)
[2017-11-06] MEDS: *HR* Enoxaparin 40 MG/0.4 ML SYRINGE SQ SCH (05:02)
[2017-11-06] MEDS: Pregabalin 75 MG CAPSULE PO SCH ×2 (09:13→22:54)
[2017-11-06] MEDS: levETIRAcetam 250 MG TABLET PO SCH ×4 (09:13→22:53)
[2017-11-06] MEDS: Cholecalciferol (D-3) 1,000 UNIT TABLET PO SCH (09:13)
[2017-11-06] MEDS: Clobazam [Onfi] 10 MG PO SCH (09:31)
--- NOTE | 2017-11-06 12:25 | Internal Med Progress Note ---
Date of Encounter: 11/06/17 Time of Encounter: 13:49 - Assessment and plan (1) S/P craniotomy Current Visit: Yes Status: Acute Assessment and plan: here for pt/ot, d/c goals per pt ot, looking at saturday (2) Oligodendroglioma Current Visit: Yes Status: Acute Assessment and plan: path is pending. she will likely get at her f/u appt (3) Chronic constipation Current Visit: Yes Status: Acute Assessment and plan: better (4) Expressive aphasia Current Visit: Yes Status: Acute Assessment and plan: continue ST (5) Seizure disorder Current Visit: Yes Status: Acute Assessment and plan: doing ok with the current medication dose. will cont. one seizure since surgery will continue seizure precautions - Subjective Interval history: she has been doing well no pain. . she is getting around with the walker. no cp, no palp,no sob, no n/v, , no complaints today, bowels are ok, likely d/c saturday if she meets her goals, she does not wnt her morgan removed - Constitutional Vitals: Temp Pulse Resp BP Pulse Ox 98.1 F 79 14 91/59 97 11/06/17 07:39 11/06/17 07:39 11/06/17 07:39 11/06/17 07:39 11/06/17 07:39 General appearance: Present: A&O X 3, pleasant, answers questions appropriately - Head Head exam: Absent: atraumatic (incsion c/d/i) - Neck Neck exam general surgery: Present: supple, trachea midline. Absent: lymphadenopathy - Respiratory Respiratory exam: Present: CTAB - Cardiovascular Cardiovascular exam: Present: RRR. Absent: systolic murmur - GI/Abdominal GI/Abdominal exam: Present: normal bowel sounds, soft, no peritoneal signs. Absent: guarding, tenderness - Extremities Exam Extremities exam: Present: normal capillary refill, warm. Absent: pedal edema - Skin Skin exam: Present: dry, warm Internal Medicine: Result - Labs CBC & Chem 7: 10/26/17 05:40 10/26/17 05:40 - ABG Interpretation ABG results: PT/INR, D-dimer PT 11.3 Seconds (9.4-12.1) 10/26/17 05:40 - VTE Documentation of Mechanical Device: Graduated compression elastic hosiery Consult Discharge Plan - Plan Referrals: [place],Arlyn J, MD [Primary Care Provider] -
[2017-11-06] MEDS: lamoTRIgine 100 MG TABLET PO SCH (22:55)
[2017-11-06] MEDS: Melatonin 3 MG TABLET PO PRN (22:57)
[2017-11-07] MEDS: *HR* Enoxaparin 40 MG/0.4 ML SYRINGE SQ SCH (05:15)
[2017-11-07] MEDS: Cholecalciferol (D-3) 1,000 UNIT TABLET PO SCH (09:55)
[2017-11-07] MEDS: Acetaminophen 325 MG TABLET PO PRN (09:55)
[2017-11-07] MEDS: Pregabalin 75 MG CAPSULE PO SCH ×2 (09:56→20:59)
[2017-11-07] MEDS: levETIRAcetam 250 MG TABLET PO SCH ×4 (09:56→20:57)
[2017-11-07] MEDS: Clobazam [Onfi] 10 MG PO SCH (09:57)
--- NOTE | 2017-11-07 13:44 | Discharge Summary ---
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 Her pathology is still pending she is to follow-up on Saturday to get those results. She did not want to have her morgan removed until she saw the neurosurgeon on Saturday. The incision was looking good so he left those alone. She did her rehabilitation if she met her goals for PT OT and was felt safe to be in the home with 24-hour supervision she was discharged home today (2) Oligodendroglioma Priority: Secondary Status: Acute Comments: This was recurrent she is status post resection (3) Chronic constipation Priority: Secondary Status: Acute Comments: She did have good results using her at home bowel regimen her bowels were moving consistently and softly. She was happy with results make changes to her home medicines (4) Expressive aphasia Priority: Secondary Status: Acute Comments: [facility] speech therapy she was discharged from their standpoint she did not really really well with her speech after surgery despite having the tumor removed really helped improved her speech (5) Seizure disorder Priority: Secondary Status: Acute Comments: She was having daily seizures prior to her surgery after surgery she has only had 1 or she is walking on the desai she sat down and discussed remember how she got there. Did not last very long and that was the only one that she had. She did want to go back to her prior dose of Lamictal and that was changed. (6) Mixed hyperlipidemia Priority: Secondary Status: Acute Comments: She is not on medication for that. Hospital course: Ms. Moses is a 62 year old female Who came here from [facility] after she had a craniotomy for a brain mass. She has a lot of expressive aphasia prior to surgery that has improved greatly. She had PT OT speech and progressed well to the point where she was able to go home with 24-hour supervision. She did have some forgetfulness with forgetting the walker but was very pleasant and easy to remind with verbal cues. Her incision was clean dry and intact she did not want to morgan removed so she has a follow-up with neurosurgery on Saturday. She had some constipation it was resolved here she took her home doses of medicines we did not make any changes in she was having regular consistent stool. She was discharged home in a stable condition - Time Spent with Patient Total time spent providing and/or coordinating discharge services: - Discharge Medications Home Medications: Calcium Carbonate/Vitamin D3 [Calcium 600 + Vit D Tablet] 1 each PO BID [History] Clobazam [Onfi] 5 mg PO DAILY 10/25/16 [History] Lacosamide [Vimpat] 50 mg PO QID 10/25/16 [History] LevETIRAcetam [Keppra] 750 mg PO QID 10/25/16 [History] [place]-3/Dha/Epa/Fish Oil [Fish Oil [place]-3 EC 1,200 mg] 1,000 mg PO BID [History] Pregabalin [Lyrica] 300 mg PO BID 10/25/16 [History] Bisacodyl [Dulcolax] 5 mg PO DAILY PRN 10/25/17 [History] Cholecalciferol (Vitamin D3) [Vitamin D3] 1,000 unit PO BID 10/25/17 [History] Lactulose [Enulose] 10 gm PO DAILY PRN 10/25/17 [History] Polyethylene Glycol 3350 [MiraLAX] 1 pack PO DAILY 10/25/17 [History] Sennosides [Senna] 8.6 mg PO BID PRN 10/25/17 [History] Acetaminophen [Tylenol] 650 mg PO Q4HR PRN tablet 11/07/17 [Rx] Docusate [Colace] 100 mg PO BID capsule 11/07/17 [Rx] Enoxaparin [Lovenox] 40 mg SQ 0600 syringe 11/07/17 [Rx] Famotidine [Pepcid] 20 mg PO BID PRN tablet 11/07/17 [Rx] Melatonin 3 mg PO HS PRN tablet 11/07/17 [Rx] lamoTRIgine [Lamictal] 150 mg PO HS tablet 11/07/17 [Rx] Allergies/Adverse Reactions: 3 Allergy/AdvReac Type Severity Reaction Status Date / Time divalproex sodium Allergy Anaphylaxis Verified 12/11/16 19:30 [From Depakote] Date of admission: 10/25/17 14:50 Primary care physician: Arlyn Espinal, Consults: 10/25/17 15:43 Consult to Occupational Therapy [CONS] Routine Comment: Evaluate, develop and implement POC Reason for Consult: eval and tx Consult to Physical Therapy [CONS] Routine Comment: Evaluate, develop and implement POC Reason for Consult: eval and tx Consult to Doctor Podiatric Medicine [CONS] Routine Reason for SW Consult: d/c planning 10/25/17 19:01 Consult to Speech Therapy [CONS] Routine Comment: Evaluate, develop and implement POC Reason for Consult: aphasia Call Completed: No 10/25/17 19:03 Consult to Physical Medicine/Rehab [CONS] Routine Reason for Consult: s/p craniotomy Call Completed: No - Constitutional Vitals: Temp Pulse Resp BP Pulse Ox 97.9 F 69 17 94/61 98 11/07/17 07:53 11/07/17 07:53 11/07/17 07:53 11/07/17 07:53 11/07/17 07:53 General appearance: Present: A&O X 3, pleasant, answers questions appropriately - Head Head exam: Absent: atraumatic (She still has the morgan and her incision is clean dry and intact she does not want those removed) - Neck Neck exam general surgery: Present: trachea midline. Absent: lymphadenopathy - Respiratory Respiratory exam: Present: CTAB - Cardiovascular Cardiovascular exam: Present: RRR. Absent: systolic murmur - GI/Abdominal GI/Abdominal exam: Present: normal bowel sounds, soft, no peritoneal signs. Absent: guarding, mass - Extremities Exam Extremities exam: Present: normal capillary refill, warm. Absent: mottling, pedal edema - Skin Skin exam: Present: dry, vesicles. Absent: rash - Patient Status Disposition: Home Health Service Condition: Good Functional capacity at discharge: uses cane/walker Overall status at discharge: patient is progressing back to baseline - Discharge Instructions Instructions: Craniotomy for Tumor Resection (DC) Follow Up With: Kemal henao [Other] - 11/11/17 9:30 am Arlyn Espinal MD [Primary Care Provider] - 11/14/17 10:30 am - Diet and Activity Activity: ambulate only with your walker, as per physical therapy Diet: low fat, low cholesterol - VTE Documentation of Mechanical Device: Graduated compression elastic hosiery
[2017-11-07] MEDS: lamoTRIgine 100 MG TABLET PO SCH (20:58)
[2017-11-08] MEDS: *HR* Enoxaparin 40 MG/0.4 ML SYRINGE SQ SCH (05:07)
[2017-11-08 08:02] VITALS: BP 126/77
[2017-11-08] MEDS: Pregabalin 75 MG CAPSULE PO SCH (09:41)
[2017-11-08] MEDS: Cholecalciferol (D-3) 1,000 UNIT TABLET PO SCH (09:42)
[2017-11-08] MEDS: levETIRAcetam 250 MG TABLET PO SCH ×2 (09:42→13:07)
[2017-11-08] MEDS: Clobazam [Onfi] 10 MG PO SCH (09:43)
--- NOTE | 2017-11-08 13:28 | Physician Discharge Referral ---
Home Health/Hosp Referral Info Transfer to: Home Health Attending Provider: Kylie Provider in Charge Post Discharge: PCP - Diagnosis (1) S/P craniotomy Priority: Primary Status: Acute (2) Oligodendroglioma Priority: Secondary Status: Acute (3) Chronic constipation Priority: Secondary Status: Acute (4) Expressive aphasia Priority: Secondary Status: Acute (5) Seizure disorder Priority: Secondary Status: Acute (6) Mixed hyperlipidemia Priority: Secondary Status: Acute - Respiratory Orders Smoking Cessation: Smoking cessation has been advised. For more information, call the [place] Tobacco Quit Line at 9-942-DNEZ-NOW. - Diet/Nutrition Diet/Nutrition Orders: Regular - Activity Activity Orders: Ambulate, Walker - Services Needed Following services are medically necessary services: Nursing, Home Health Aide, Physical Therapy, Occupational Therapy - Transfer Medications Home Medications: Calcium Carbonate/Vitamin D3 [Calcium 600 + Vit D Tablet] 1 each PO BID [History] Clobazam [Onfi] 5 mg PO DAILY 10/25/16 [History] Lacosamide [Vimpat] 50 mg PO QID 10/25/16 [History] LevETIRAcetam [Keppra] 750 mg PO QID 10/25/16 [History] [place]-3/Dha/Epa/Fish Oil [Fish Oil Emerson-3 EC 1,200 mg] 1,000 mg PO BID [History] Pregabalin [Lyrica] 300 mg PO BID 10/25/16 [History] Bisacodyl [Dulcolax] 5 mg PO DAILY PRN 10/25/17 [History] Cholecalciferol (Vitamin D3) [Vitamin D3] 1,000 unit PO BID 10/25/17 [History] Lactulose [Enulose] 10 gm PO DAILY PRN 10/25/17 [History] Polyethylene Glycol 3350 [MiraLAX] 1 pack PO DAILY 10/25/17 [History] Sennosides [Senna] 8.6 mg PO BID PRN 10/25/17 [History] Acetaminophen [Tylenol] 650 mg PO Q4HR PRN tablet 11/07/17 [Rx] Docusate [Colace] 100 mg PO BID capsule 11/07/17 [Rx] Enoxaparin [Lovenox] 40 mg SQ 0600 syringe 11/07/17 [Rx] Famotidine [Pepcid] 20 mg PO BID PRN tablet 11/07/17 [Rx] Melatonin 3 mg PO HS PRN tablet 11/07/17 [Rx] lamoTRIgine [Lamictal] 150 mg PO HS tablet 11/07/17 [Rx] Allergies/Adverse Reactions: 3 Allergy/AdvReac Type Severity Reaction Status Date / Time divalproex sodium Allergy Anaphylaxis Verified 12/11/16 19:30 [[address] [facility]] Certification: Further, I certify that my clinical findings support that this patient is homebound (i.e. absences from home require considerable and taxing effort and are for medical reasons or gnosticism services or infrequently or short duration when for other reasons) because: Homebound Reason: Patient requires assistance of a person or device to safely leave home (needs walker cannot drive due to seizures) Attestation: My signature below is to certify that this patient is under my care and that I, or nurse practitioner, or a physician's merchandising assistant working with me, has a face-to -face encounter with this patient. 11/08/17
== END 2017-11-08 12:00 | disposition home health service (06) | DRG 949 ==
LOC: INPGRE 14:50
PROVIDERS: ADMIT Family Medicine; ATTEND Family Medicine

== ENCOUNTER 2018-04-14 15:11 | Inpatient (IN) ==
[2018-04-14] MEDS ORDERED: *HR* LORazepam 0.5 MG TABLET PO PRN (21:00)
[2018-04-14] MEDS ORDERED: Sennosides 8.6 MG TABLET PO SCH (21:00)
[2018-04-14] MEDS: Sennosides/Docusate Sodium TABLET PO SCH (22:49)
[2018-04-14] MEDS: Pregabalin 75 MG CAPSULE PO SCH (22:50)
[2018-04-14] MEDS: levETIRAcetam 250 MG TABLET PO SCH (22:52)
[2018-04-14] MEDS: lamoTRIgine 100 MG TABLET PO SCH (22:53)
[2018-04-15 04:22] LABS: Bilirubin,Urine Negative (Negative); Blood,Urine Negative (Negative); Clarity,Urine Slightly Cloudy (Clear); Glucose,Urine (UA) Normal (Normal); Ketones,Urine Negative (Negative); Leukocyte Esterase,Urine Small (Negative); Nitrite,Urine Negative (Negative); Protein,Urine Negative (Neg-Trace); Specific Gravity,Urine 1.015 (1.010-1.025); Urobilinogen,Urine Normal (Normal)
[2018-04-15 04:24] LABS: Color,Urine Yellow (Yellow)
[2018-04-15 04:26] LABS: Bacteria,Urine Few per hpf (None-Few); Squamous Epithelial Cell,Urine Few per lpf (None-Few)
[2018-04-15] MEDS: *HR* Enoxaparin 40 MG/0.4 ML SYRINGE SQ SCH (06:03)
[2018-04-15 07:29] LABS: BUN/Creatinine Ratio 14 (6-26); Blood Urea Nitrogen 12 mg/dL (8-23); Calcium 9.3 mg/dL (8.6-10.3); Carbon Dioxide 28 mEq/L (23-29); Chloride 108 mEq/L (98-107); Glucose 98 mg/dL (70-105); Osmolality,Calculated 294 (280-300); Potassium 3.7 mEq/L (3.5-5.1); Sodium 142 mEq/L (136-145); eGFR For Non-African Americans > 60 (> 60)
[2018-04-15] MEDS: Sennosides/Docusate Sodium TABLET PO SCH ×3 (08:21→21:59)
[2018-04-15] MEDS: Pregabalin 75 MG CAPSULE PO SCH ×2 (08:21→21:52)
[2018-04-15] MEDS: levETIRAcetam 250 MG TABLET PO SCH ×4 (08:22→21:51)
[2018-04-15 08:33] LABS: Basophils % 0.3 %; Eosinophils # 0.1 K/mcL (0.0-0.6); Eosinophils % 1.3 %; Hematocrit 32.6 % (35.3-44.9); Hemoglobin 10.8 g/dL (11.5-15.4); Immature Granulocytes % 0.8 % (0-4); Lymphocytes # 0.6 K/mcL (0.6-4.6); Lymphocytes % 14.6 %; Mean Corpuscular HGB Conc 33.1 g/dL (31.6-35.5); Mean Corpuscular Volume 93.7 fL (83.0-100.0); Mean Platelet Volume 11.6 fL (9.4-12.4); Monocytes # 0.5 K/mcL (0.0-1.3); Platelet Count 105 K/mcL (140-400); Red Blood Count 3.48 M/mcL (3.82-4.97)
[2018-04-15 09:23] LABS: Prothrombin Time 11.3 Seconds (9.4-12.1)
[2018-04-15 09:26] LABS: Activated Partial Thrombo Time 35.7 Seconds (26.0-36.0)
[2018-04-15 10:19] LABS: Neutrophils # 2.7 K/mcL (1.6-8.9)
--- NOTE | 2018-04-15 10:59 | Internal Med History&Physical ---
Date of Encounter: 04/15/18 Time of Encounter: 10:58 Assessment and Plan (1) Weakness Current visit: Yes Status: Acute she is here for rehab, pt,ot,rt consults anticipate home after d/c. she is deconditioned due to the chemo for cancer (2) Chronic constipation Current visit: Yes Status: Acute will continue her home medication (3) Mixed hyperlipidemia Current visit: Yes Status: Acute Will not make any changes to her current medication (4) Osteoporosis Current visit: No Status: Acute Continue Qualifiers: Osteoporosis type: unspecified Presence of current pathological fracture: without current pathological fracture Qualified Code(s): M81.0 - Age-related osteoporosis without current pathological fracture (5) S/P craniotomy Current visit: No Status: Acute (6) Oligodendroglioma Current visit: Yes Status: Acute Will do PT OT and RT and hopefully get her strong enough swishing tolerated her A chemotherapy (7) Expressive aphasia Current visit: Yes Status: Acute (8) Seizure disorder Current visit: Yes Status: Acute Tinea her home seizure medication she has not had a seizure since October but will put her on seizure precautions are generally not tonic-clonic they are just some speech deficits and aphasia Internal Medicine - H&P: HPI Chief complaint: here for rehab Admitted From: Hospital to Hospital Transfer Plans for Post Hospital Care: Home History of present illness: Ms. Moses is a 62 year old female Who has a past medical history of malignancy she has been undergoing chemotherapy for oligodendroglioma and she had a craniotomy which is her second craniotomy in October and underwent rehabilitation for that she had been doing well but had her chemotherapy she has had 4 rounds. After this past round she had following weakness she could not take care of herself at home. She was admitted up at [facility]. She is evaluated by physical therapy felt to be a good candidate for rehabilitation inpatient. She is admitted down here. She has not had any seizures since October. She has not had any loss of consciousness she did not get her with her falls but she has an abnormal gait she has generalized weakness and speech aphasia. She denies any pain nausea vomiting decreased appetite she is generally fatigued and tired. Past Med Surg Social Fam HX - Past Medical History Medical history: cancer (oligodendroglioma), hyperlipidemia, osteoporosis, renal disease (asymmetric kidneys), seizures (absence), other (constipation, uterine prolapse, expresive aphasia, rotator cuff strain) Additional medical history: brain cancer Psychiatric history: no psych history - Past Surgical History Surgical History: orthopedic, other (right radial ori10/25/16, craniotomy 04/1994 , repeat craniotomy 10/2017colonoscipy normal 09/22/04, endometrial bx 04/29/07, colonoscopy 11/25/09, bps 1989, cervical polyps, [id number]/2/14), other Additional surgical history: CRANIOTOMY,RIGHT WRIST FRACTURE/ORIF - Social History Smoking Status: Never smoker Smokeless Tobacco Status: No Alcohol use: none Drug use: none - Family History Mother Hx Family Cardiac Disorders: Yes (htn) Hx Family Endocrine Disorder: Yes (dm) Father Living Status: Hx Family Cancer: Yes (colon) Brother Hx Family Cancer: Yes (melenoma) Internal Medicine - H&P: Meds Clobazam [Onfi] 5 mg PO DAILY 10/25/16 [History] Lacosamide [Vimpat] 50 mg PO QID 10/25/16 [History] LevETIRAcetam [Keppra] 750 mg PO QID 10/25/16 [History] Pregabalin [Lyrica] 300 mg PO BID 10/25/16 [History] Sennosides [Senna] 8.6 mg PO BID 10/25/17 [History] lamoTRIgine [Lamictal] 150 mg PO HS tablet 11/07/17 [Rx] Docusate [Colace] 100 mg PO BID 04/14/18 [History] LORazepam [Ativan] 0.5 mg PO PRN PRN 04/14/18 [History] Sennosides [Senna] 8.6 mg PO BID PRN 04/14/18 [History] 3 Allergy/AdvReac Type Severity Reaction Status Date / Time divalproex sodium Allergy Anaphylaxis Verified 04/08/18 16:26 [From Depakote] All Systems PM: A 10-system review of systems was performed and is negative for pertinent findings except as documented above in the HPI. - Constitutional Constitutional: fatigue, falls, weakness, no fever(s) - EENT Eyes: no loss of vision Nose, mouth and throat: no nasal congestion - Cardiovascular Cardiovascular ROS IM: no chest pain, no dyspnea, no palpitations, no syncope - Respiratory Respiratory: no cough, no dyspnea, no wheezing - Gastrointestinal Gastrointestinal: constipation (chronic), no diarrhea, no hematochezia, no loose stools, no melena, no nausea, no vomiting - Genitourinary Genitourinary: urinary frequency - Neurological Neurological ROS: abnormal gait, abnormal speech, frequent falls - Psychiatric Psychiatric: no anxiety - Constitutional Vitals: Temp Pulse Resp BP Pulse Ox 97.5 F L 74 16 109/65 94 04/15/18 08:00 04/15/18 08:00 04/15/18 08:00 04/15/18 08:00 04/15/18 08:00 General appearance: Present: A&O X 3, no acute distress. Absent: answers questions appropriately (she has expresive aphasia) - Head Head exam: Absent: normocephalic (2 well healed craniotomy scars) - Neck Neck exam general surgery: Present: full ROM, normal inspection, supple, trachea midline. Absent: lymphadenopathy - Respiratory Respiratory exam: Present: CTAB - Cardiovascular Cardiovascular exam: Present: RRR, +S1, +S2. Absent: systolic murmur - GI/Abdominal GI/Abdominal exam: Present: normal bowel sounds, soft, no peritoneal signs. Absent: distended, guarding, mass, tenderness - Extremities Exam Extremities exam: Present: normal capillary refill, warm. Absent: pedal edema, tenderness - Neurological Exam Neurological exam: Present: CN II-XII intact, strengths equal and symetr throughout (but 4/5 generalized weakness not focal), speech deficit. Absent: normal gait, facial droop - Skin Skin exam: Present: dry, warm. Absent: rash Internal Med - H&P Results - Labs CBC & Chem 7: 04/15/18 06:57 04/15/18 06:57 Labs: Short CBC 04/15/18 Range/Units 06:57 WBC 3.8 L D (4.3-11.1) K/mcL Hgb 10.8 L (11.5-15.4) g/dL Hct 32.6 L (35.3-44.9) % Plt Count 105 L (140-400) K/mcL Neutrophils # 2.7 (1.6-8.9) K/mcL BMP 04/15/18 06:57 Sodium 142 Potassium 3.7 Chloride 108 H Carbon Dioxide 28 BUN 12 Creatinine 0.88 Glucose 98 Calcium 9.3 Urine 04/15/18 Range/Units 03:44 Urine Color Yellow (Yellow) Urine Clarity Slightly Cloudy A (Clear) Urine pH 6.0 (5.0-8.0) pH Units Ur Specific [place] 1.015 (1.010-1.025) Urine Protein Negative (Neg-Trace) mg/dL Urine Glucose (UA) Normal (Normal) mg/dL
[2018-04-15] MEDS ORDERED: CLOBAZAM 5 MG PO SCH (18:00)
[2018-04-15] MEDS: lamoTRIgine 100 MG TABLET PO SCH (21:54)
[2018-04-16] MEDS: *HR* Enoxaparin 40 MG/0.4 ML SYRINGE SQ SCH (05:42)
[2018-04-16] MEDS: Sennosides/Docusate Sodium TABLET PO SCH ×2 (08:54→19:54)
[2018-04-16] MEDS: Pregabalin 75 MG CAPSULE PO SCH ×2 (08:54→19:54)
[2018-04-16] MEDS: levETIRAcetam 250 MG TABLET PO SCH ×4 (08:55→19:54)
[2018-04-16] MEDS: Clobazam [Onfi] 10 MG PO SCH (12:40)
--- NOTE | 2018-04-16 14:38 | Internal Med Progress Note ---
Date of Encounter: 04/16/18 Time of Encounter: 15:04 - Assessment and plan (1) Weakness Current Visit: Yes Status: Inactive Assessment and plan: She is here for a PT OT RT goal is to return her to her home environment. She is deconditioned after receiving chemotherapy. Frequent falls at home (2) Chronic constipation Current Visit: Yes Status: Acute Assessment and plan: Continue her on her home medication regimen and this is a chronic issue for her. (3) Mixed hyperlipidemia Current Visit: Yes Status: Acute (4) Osteoporosis Current Visit: No Status: Acute Assessment and plan: We will not make any changes to her medication. Qualifiers: Osteoporosis type: unspecified Presence of current pathological fracture: without current pathological fracture Qualified Code(s): M81.0 - Age-related osteoporosis without current pathological fracture (5) S/P craniotomy Current Visit: No Status: Acute Assessment and plan: She has not having any pain from this. (6) Oligodendroglioma Current Visit: Yes Status: Acute (7) Expressive aphasia Current Visit: Yes Status: Acute Assessment and plan: Seems to be at her baseline. (8) Seizure disorder Current Visit: Yes Status: Acute Assessment and plan: She has not had a seizure since October. Her home medications - Subjective Interval history: doing well no complaints. no pain. she has been attempting to get up by herself, no cp, no sob, no dizzy, constipation better than baseline but still present. participating in therapy - Constitutional Vitals: Temp Pulse Resp BP Pulse Ox 97.7 F 76 17 85/54 96 04/16/18 07:20 04/16/18 07:20 04/16/18 07:20 04/16/18 07:20 04/16/18 07:20 General appearance: Present: A&O X 3, no acute distress. Absent: answers questions appropriately (she has expresive aphasia) - Head Head exam: Absent: normocephalic (s/pcraniotomy) - Neck Neck exam general surgery: Present: supple, trachea midline. Absent: lymphadenopathy - Respiratory Respiratory exam: Present: CTAB - Cardiovascular Cardiovascular exam: Present: RRR, +S1, +S2. Absent: systolic murmur - GI/Abdominal GI/Abdominal exam: Present: normal bowel sounds, soft, no peritoneal signs. Absent: distended, guarding, tenderness - Extremities Exam Extremities exam: Present: normal capillary refill. Absent: pedal edema - Neurological Exam Neurological exam: Present: speech deficit. Absent: facial droop - Skin Skin exam: Present: dry, warm. Absent: rash Internal Medicine: Result - Labs CBC & Chem 7: 04/15/18 06:57 04/15/18 06:57 - ABG Interpretation ABG results: PT/INR, D-dimer PT 11.3 Seconds (9.4-12.1) 04/15/18 06:57 Consult Discharge Plan - Plan Referrals: Arlyn Ford MD [Primary Care Provider] -
[2018-04-16] MEDS: lamoTRIgine 100 MG TABLET PO SCH (19:54)
[2018-04-17] MEDS: *HR* Enoxaparin 40 MG/0.4 ML SYRINGE SQ SCH (06:50)
[2018-04-17] MEDS: levETIRAcetam 250 MG TABLET PO SCH ×4 (08:04→20:12)
[2018-04-17] MEDS: Sennosides/Docusate Sodium TABLET PO SCH ×2 (08:04→20:13)
[2018-04-17] MEDS: Pregabalin 75 MG CAPSULE PO SCH ×2 (08:04→20:13)
[2018-04-17] MEDS: Clobazam [Onfi] 10 MG PO SCH (13:01)
[2018-04-17] MEDS: lamoTRIgine 100 MG TABLET PO SCH (20:12)
[2018-04-17] MEDS: Sennosides 8.6 MG TABLET PO PRN (20:13)
[2018-04-18] MEDS: *HR* Enoxaparin 40 MG/0.4 ML SYRINGE SQ SCH (05:31)
[2018-04-18] MEDS: Sennosides/Docusate Sodium TABLET PO SCH ×2 (08:22→21:09)
[2018-04-18] MEDS: Pregabalin 75 MG CAPSULE PO SCH ×2 (08:23→21:01)
[2018-04-18] MEDS: levETIRAcetam 250 MG TABLET PO SCH ×4 (08:23→21:00)
--- NOTE | 2018-04-18 11:08 | Internal Med Progress Note ---
Date of Encounter: 04/18/18 Time of Encounter: 13:00 - Assessment and plan (1) Weakness Current Visit: Yes Status: Inactive Assessment and plan: She is here for a PT OT RT goal is to return her to her home environment. She is deconditioned after receiving chemotherapy. Frequent falls at home (2) Chronic constipation Current Visit: Yes Status: Acute Assessment and plan: Continue her on her home medication regimen and this is a chronic issue for her. (3) Mixed hyperlipidemia Current Visit: Yes Status: Acute (4) Osteoporosis Current Visit: No Status: Acute Assessment and plan: We will not make any changes to her medication. Qualifiers: Osteoporosis type: unspecified Presence of current pathological fracture: without current pathological fracture Qualified Code(s): M81.0 - Age-related osteoporosis without current pathological fracture (5) S/P craniotomy Current Visit: No Status: Acute Assessment and plan: She has not having any pain from this. (6) Oligodendroglioma Current Visit: Yes Status: Acute (7) Expressive aphasia Current Visit: Yes Status: Acute Assessment and plan: Seems to be at her baseline. (8) Seizure disorder Current Visit: Yes Status: Acute Assessment and plan: She has not had a seizure since October. Her home medications - Subjective Interval history: doing well no complaints. no pain. s, no cp, no sob, no dizzy,but she does lean off to the left and back . pt working on that. constipation better than baseline but still present.she is declining some of the constipation meds participating in therapy - Constitutional Vitals: Temp Pulse Resp BP Pulse Ox 98.3 F 83 18 108/66 94 04/18/18 07:00 04/18/18 07:00 04/18/18 07:00 04/18/18 07:00 04/18/18 07:00 General appearance: Present: A&O X 3, no acute distress. Absent: answers questions appropriately (she has expresive aphasia) - Head Head exam: Absent: normocephalic - Neck Neck exam general surgery: Present: supple, trachea midline. Absent: lymphadenopathy - Respiratory Respiratory exam: Present: CTAB - Cardiovascular Cardiovascular exam: Present: RRR, +S1, +S2. Absent: systolic murmur - GI/Abdominal GI/Abdominal exam: Present: normal bowel sounds, soft, no peritoneal signs. Absent: distended, guarding, tenderness - Extremities Exam Extremities exam: Absent: pedal edema Internal Medicine: Result - Labs CBC & Chem 7: 04/15/18 06:57 04/15/18 06:57 - ABG Interpretation ABG results: PT/INR, D-dimer PT 11.3 Seconds (9.4-12.1) 04/15/18 06:57 Consult Discharge Plan - Plan Referrals: Arlyn Ford MD [Primary Care Provider] -
[2018-04-18] MEDS: Clobazam [Onfi] 10 MG PO SCH (13:12)
[2018-04-18] MEDS: lamoTRIgine 100 MG TABLET PO SCH (21:01)
[2018-04-19] MEDS: *HR* Enoxaparin 40 MG/0.4 ML SYRINGE SQ SCH (05:13)
[2018-04-19] MEDS: Sennosides/Docusate Sodium TABLET PO SCH ×2 (09:35→22:52)
[2018-04-19] MEDS: Pregabalin 75 MG CAPSULE PO SCH ×2 (09:35→22:52)
[2018-04-19] MEDS: levETIRAcetam 250 MG TABLET PO SCH ×4 (09:35→22:52)
[2018-04-19] MEDS: Clobazam [Onfi] 10 MG PO SCH (13:55)
[2018-04-19] MEDS: lamoTRIgine 100 MG TABLET PO SCH (22:51)
[2018-04-20] MEDS: *HR* Enoxaparin 40 MG/0.4 ML SYRINGE SQ SCH (06:49)
[2018-04-20] MEDS: Pregabalin 75 MG CAPSULE PO SCH ×2 (10:29→20:52)
[2018-04-20] MEDS: Sennosides/Docusate Sodium TABLET PO SCH ×2 (10:30→20:50)
[2018-04-20] MEDS: levETIRAcetam 250 MG TABLET PO SCH ×3 (10:30→20:54)
[2018-04-20] MEDS: Clobazam [Onfi] 10 MG PO SCH (10:31)
--- NOTE | 2018-04-20 11:49 | Internal Med Progress Note ---
Date of Encounter: 04/20/18 Time of Encounter: 11:47 - Assessment and plan (1) Weakness Current Visit: Yes Status: Inactive Assessment and plan: She is here for a PT OT RT goal is to return her to her home environment. She is deconditioned after receiving chemotherapy. Frequent falls at home. she had a fall yesterday. discussed not getting up , no injury (2) Chronic constipation Current Visit: Yes Status: Acute Assessment and plan: Continue her on her home medication regimen and this is a chronic issue for her. (3) Mixed hyperlipidemia Current Visit: Yes Status: Acute (4) Osteoporosis Current Visit: No Status: Acute Assessment and plan: We will not make any changes to her medication. Qualifiers: Osteoporosis type: unspecified Presence of current pathological fracture: without current pathological fracture Qualified Code(s): M81.0 - Age-related osteoporosis without current pathological fracture (5) S/P craniotomy Current Visit: No Status: Acute Assessment and plan: She has not having any pain from this. (6) Oligodendroglioma Current Visit: Yes Status: Acute (7) Expressive aphasia Current Visit: Yes Status: Acute Assessment and plan: Seems to be at her baseline. (8) Seizure disorder Current Visit: Yes Status: Acute Assessment and plan: She has not had a seizure since October. Her home medications - Subjective Interval history: doing well no complaints. no pain. s, no cp, no sob, no dizzy,but she does lean off to the left and back . pt working on that. constipation better than baseline but still present.she is declining some of the constipation meds participating in therapy. she did fall yesterday getting to the bathroom on her own. no injury no pain. discussed that she cannot get up on her own due to injury risk. will have staff check freq - Constitutional Vitals: Temp Pulse Resp BP Pulse Ox 98.3 F 81 12 97/67 94 04/20/18 07:07 04/20/18 07:07 04/20/18 07:07 04/20/18 07:07 04/20/18 07:07 General appearance: Present: A&O X 3, no acute distress. Absent: answers questions appropriately (she has expresive aphasia) - Head Head exam: Absent: normocephalic - Neck Neck exam general surgery: Present: supple, trachea midline. Absent: lymphadenopathy - Respiratory Respiratory exam: Present: CTAB - Cardiovascular Cardiovascular exam: Present: RRR, +S1, +S2. Absent: systolic murmur - GI/Abdominal GI/Abdominal exam: Present: normal bowel sounds, soft, no peritoneal signs. Absent: distended, guarding, tenderness - Extremities Exam Extremities exam: Present: normal capillary refill, pedal edema - Skin Skin exam: Present: dry, warm. Absent: rash Internal Medicine: Result - Labs CBC & Chem 7: 04/15/18 06:57 04/15/18 06:57 - ABG Interpretation ABG results: PT/INR, D-dimer PT 11.3 Seconds (9.4-12.1) 04/15/18 06:57 Consult Discharge Plan - Plan Referrals: Arlyn Ford MD [Primary Care Provider] -
[2018-04-20] MEDS: lamoTRIgine 100 MG TABLET PO SCH (20:51)
[2018-04-21] MEDS: *HR* Enoxaparin 40 MG/0.4 ML SYRINGE SQ SCH (04:46)
[2018-04-21] MEDS: Pregabalin 75 MG CAPSULE PO SCH ×2 (08:57→20:49)
[2018-04-21] MEDS: Sennosides/Docusate Sodium TABLET PO SCH ×2 (08:59→20:48)
[2018-04-21] MEDS: levETIRAcetam 250 MG TABLET PO SCH ×4 (08:59→20:47)
[2018-04-21] MEDS: Clobazam [Onfi] 10 MG PO SCH (12:51)
[2018-04-21] MEDS: lamoTRIgine 100 MG TABLET PO SCH (20:48)
[2018-04-22] MEDS: *HR* Enoxaparin 40 MG/0.4 ML SYRINGE SQ SCH (06:44)
[2018-04-22] MEDS: levETIRAcetam 250 MG TABLET PO SCH ×5 (09:12→21:28)
[2018-04-22] MEDS: Pregabalin 75 MG CAPSULE PO SCH ×2 (09:13→21:27)
[2018-04-22] MEDS: Sennosides/Docusate Sodium TABLET PO SCH ×2 (09:14→21:28)
[2018-04-22] MEDS: Clobazam [Onfi] 10 MG PO SCH (13:21)
--- NOTE | 2018-04-22 15:34 | Internal Med Progress Note ---
Date of Encounter: 04/22/18 Time of Encounter: 15:34 - Assessment and plan (1) Weakness Current Visit: Yes Status: Inactive Assessment and plan: She is here for a PT OT RT goal is to return her to her home environment. She is deconditioned after receiving chemotherapy. Frequent falls at home. she had a fall saturday. discussed not getting up , no injury (2) Chronic constipation Current Visit: Yes Status: Acute Assessment and plan: Continue her on her home medication regimen and this is a chronic issue for her. (3) Mixed hyperlipidemia Current Visit: Yes Status: Acute (4) Osteoporosis Current Visit: No Status: Acute Assessment and plan: We will not make any changes to her medication. Qualifiers: Osteoporosis type: unspecified Presence of current pathological fracture: without current pathological fracture Qualified Code(s): M81.0 - Age-related osteoporosis without current pathological fracture (5) S/P craniotomy Current Visit: No Status: Acute Assessment and plan: She has not having any pain from this. (6) Oligodendroglioma Current Visit: Yes Status: Acute (7) Expressive aphasia Current Visit: Yes Status: Acute Assessment and plan: Seems to be at her baseline. (8) Seizure disorder Current Visit: Yes Status: Acute Assessment and plan: She has not had a seizure since October. Her home medications - Subjective Interval history: tired today no pain. s, no cp, no sob, no dizzy, constipation better than baseline but still present.she is declining some of the constipation meds participating in therapy. sleeping today after therapy - Constitutional Vitals: Temp Pulse Resp BP Pulse Ox 97.5 F L 88 14 135/64 93 04/22/18 08:39 04/22/18 08:39 04/22/18 08:39 04/22/18 08:39 04/22/18 08:39 General appearance: Present: A&O X 3, no acute distress. Absent: answers questions appropriately (she has expresive aphasia) - Head Head exam: Absent: normocephalic (s/pcrniotomy) - Neck Neck exam general surgery: Present: supple, trachea midline - Respiratory Respiratory exam: Present: CTAB - Cardiovascular Cardiovascular exam: Present: RRR, +S1, +S2. Absent: systolic murmur - GI/Abdominal GI/Abdominal exam: Present: normal bowel sounds, soft, no peritoneal signs. Absent: distended, guarding, tenderness - Extremities Exam Extremities exam: Present: normal capillary refill, warm. Absent: pedal edema - Skin Skin exam: Present: dry, warm. Absent: rash Internal Medicine: Result - Labs CBC & Chem 7: 04/15/18 06:57 04/15/18 06:57 - ABG Interpretation ABG results: PT/INR, D-dimer PT 11.3 Seconds (9.4-12.1) 04/15/18 06:57 Consult Discharge Plan - Plan Referrals: Arlyn Ford MD [Primary Care Provider] -
[2018-04-22] MEDS: lamoTRIgine 100 MG TABLET PO SCH (21:27)
[2018-04-23] MEDS: *HR* Enoxaparin 40 MG/0.4 ML SYRINGE SQ SCH (05:37)
[2018-04-23] MEDS: levETIRAcetam 250 MG TABLET PO SCH ×4 (09:15→20:23)
[2018-04-23] MEDS: Pregabalin 75 MG CAPSULE PO SCH ×2 (09:16→20:24)
[2018-04-23] MEDS: Sennosides/Docusate Sodium TABLET PO SCH ×2 (09:16→20:24)
--- NOTE | 2018-04-23 11:49 | Internal Med Progress Note ---
Date of Encounter: 04/23/18 Time of Encounter: 08:00 - Assessment and plan (1) Weakness Current Visit: Yes Status: Inactive Assessment and plan: She is here for a PT OT RT goal is to return her to her home environment. She is deconditioned after receiving chemotherapy. Frequent falls at home. she had a fall saturday. discussed not getting up , no injury, likely will be here for a while to regain balance (2) Chronic constipation Current Visit: Yes Status: Acute Assessment and plan: Continue her on her home medication regimen and this is a chronic issue for her. (3) Mixed hyperlipidemia Current Visit: Yes Status: Acute (4) Osteoporosis Current Visit: No Status: Acute Assessment and plan: We will not make any changes to her medication. Qualifiers: Osteoporosis type: unspecified Presence of current pathological fracture: without current pathological fracture Qualified Code(s): M81.0 - Age-related osteoporosis without current pathological fracture (5) S/P craniotomy Current Visit: No Status: Acute Assessment and plan: She has not having any pain from this.not a recent problem but chronic ongoing (6) Oligodendroglioma Current Visit: Yes Status: Acute (7) Expressive aphasia Current Visit: Yes Status: Acute (8) Seizure disorder Current Visit: Yes Status: Acute - Subjective Interval history: tired today no pain. s, no cp, no sob, no dizzy, constipation better than baseline but still present.she is declining some of the constipation meds. participating in therapy. sin the dining room this am. - Constitutional Vitals: Temp Pulse Resp BP Pulse Ox 98.1 F 83 16 117/76 95 04/22/18 21:15 04/22/18 21:15 04/22/18 21:15 04/22/18 21:15 04/22/18 21:15 General appearance: Present: A&O X 3, no acute distress. Absent: answers questions appropriately (she has expresive aphasia) - Head Head exam: Absent: normocephalic (old surgical scars) - Neck Neck exam general surgery: Present: supple, trachea midline. Absent: lymphadenopathy - Respiratory Respiratory exam: Present: CTAB - Cardiovascular Cardiovascular exam: Present: RRR, +S1, +S2. Absent: systolic murmur - GI/Abdominal GI/Abdominal exam: Present: normal bowel sounds, soft, no peritoneal signs. Absent: distended, guarding, tenderness - Extremities Exam Extremities exam: Present: warm. Absent: mottling, pedal edema Internal Medicine: Result - Labs CBC & Chem 7: 04/15/18 06:57 04/15/18 06:57 - ABG Interpretation ABG results: PT/INR, D-dimer PT 11.3 Seconds (9.4-12.1) 04/15/18 06:57 Consult Discharge Plan - Plan Referrals: Arlyn Ford MD [Primary Care Provider] -
[2018-04-23] MEDS: Clobazam [Onfi] 10 MG PO SCH (13:18)
--- NOTE | 2018-04-23 13:25 | Psychological Evaluation ---
Date of Encounter: 04/23/18 History of Present Illness History of present illness: Ms. Moses is a 62 year old female Home Medications and Allergies Clobazam [Onfi] 5 mg PO DAILY 10/25/16 [History] Lacosamide [Vimpat] 50 mg PO QID 10/25/16 [History] LevETIRAcetam [Keppra] 750 mg PO QID 10/25/16 [History] Pregabalin [Lyrica] 300 mg PO BID 10/25/16 [History] Sennosides [Senna] 8.6 mg PO BID 10/25/17 [History] lamoTRIgine [Lamictal] 150 mg PO HS tablet 11/07/17 [Rx] Docusate [Colace] 100 mg PO BID 04/14/18 [History] LORazepam [Ativan] 0.5 mg PO PRN PRN 04/14/18 [History] Sennosides [Senna] 8.6 mg PO BID PRN 04/14/18 [History] 3 Allergy/AdvReac Type Severity Reaction Status Date / Time divalproex sodium Allergy Anaphylaxis Verified 04/08/18 16:26 [From [facility]]
[2018-04-23] MEDS: Acetaminophen 325 MG TABLET PO PRN (13:59)
[2018-04-23] MEDS: lamoTRIgine 100 MG TABLET PO SCH (20:23)
[2018-04-24] MEDS: *HR* Enoxaparin 40 MG/0.4 ML SYRINGE SQ SCH (05:58)
[2018-04-24] MEDS: Pregabalin 75 MG CAPSULE PO SCH ×2 (08:37→20:39)
[2018-04-24] MEDS: levETIRAcetam 250 MG TABLET PO SCH ×4 (08:37→20:38)
[2018-04-24] MEDS: Sennosides/Docusate Sodium TABLET PO SCH ×2 (08:37→20:38)
[2018-04-24] MEDS: Clobazam [Onfi] 10 MG PO SCH (12:35)
--- NOTE | 2018-04-24 19:18 | Internal Med Progress Note ---
Date of Encounter: 04/24/18 Time of Encounter: 19:16 - Assessment and plan (1) Physical deconditioning Current Visit: Yes Status: Acute Assessment and plan: She will continue with her therapies. She needs to obtain safe mobility before consideration for home. (2) Chronic constipation Current Visit: Yes Status: Chronic Assessment and plan: Chronic constipation but she has been declining some of her medications. Her abdominal examination is normal. (3) S/P craniotomy Current Visit: Yes Status: Chronic Assessment and plan: No complaints of headache (4) Oligodendroglioma Current Visit: Yes Status: Chronic Assessment and plan: She has follow-up MRI in consultation on the 17th of this month. (5) Expressive aphasia Current Visit: Yes Status: Chronic Assessment and plan: She has some difficulties in remembering or expressing how she feels or localizing pain. Continue with her therapies. (6) Seizure disorder Current Visit: Yes Status: Chronic Assessment and plan: No recent seizures that I am aware of. (7) Leukopenia Current Visit: Yes Status: Acute Assessment and plan: Mildly leukopenic, but improving. No fever. No focus of infection. Modified reverse isolation with masks being used. We will recheck her white blood cell count tomorrow. Qualifiers: Leukopenia type: neutropenia Neutropenia type: secondary to cancer chemotherapy Qualified Code(s): D70.1 - Agranulocytosis secondary to cancer chemotherapy; T45.1X5A - Adverse effect of antineoplastic and immunosuppressive drugs, initial encounter - Subjective Interval history: Patient is really having no complaints right now. However the friend was visiting reminded patient that she was having some back pain earlier today. Patient cannot localize that. She denies any cardiac, respiratory, GI or symptoms. (She does have a chronic history of constipation though and declines some of her medication for that for some reason). Patient states that she is eating well. The nurse reported that there were no falls today. She is very unstable on her feet though and it takes 2 people to get her up. - Constitutional Vitals: Temp Pulse Resp BP Pulse Ox 97.6 F 81 16 112/67 95 04/24/18 19:05 04/24/18 19:05 04/24/18 19:05 04/24/18 19:05 04/24/18 19:05 General appearance: Present: A&O X 3, no acute distress. Absent: answers questions appropriately (she has expresive aphasia) Exam: She really did not have much to say. She has some difficulties recalling if she is having problems or not or how her day in therapy went. - Respiratory Respiratory exam: Present: CTAB. Absent: respiratory distress, wheezes - Cardiovascular Cardiovascular exam: Present: RRR, +S1, +S2 - GI/Abdominal GI/Abdominal exam: Present: soft. Absent: mass, tenderness - Extremities Exam Extremities exam: Absent: calf tenderness, pedal edema, tenderness Additional comments: Appears to have equal strength when tested in bed - Back Exam Back exam: Absent: CVA tenderness (L), CVA tenderness (R), muscle spasm, paraspinal tenderness, tenderness, vertebral tenderness Additional comments: She did not seem to have any localizing tenderness on examination of the back. I did not try to stand her up. She was able to sit forward. - Neurological Exam Neurological exam: Present: alert. Absent: speech deficit Additional comments: Muscle strength in extremities appeared to be normal and equal bilaterally as tested in bed. I did not try to stand her up. Internal Medicine: Result - Labs CBC & Chem 7: 04/15/18 06:57 04/15/18 06:57 - ABG Interpretation ABG results: PT/INR, D-dimer PT 11.3 Seconds (9.4-12.1) 04/15/18 06:57 Consult Discharge Plan - Plan Referrals: Arlyn Ford MD [Primary Care Provider] -
[2018-04-24] MEDS: Acetaminophen 325 MG TABLET PO PRN (20:37)
[2018-04-24] MEDS: lamoTRIgine 100 MG TABLET PO SCH (20:38)
[2018-04-25 04:47] LABS: Basophils % 0.3 %; Eosinophils % 0.9 %; Hemoglobin 11.2 g/dL (11.5-15.4); Immature Granulocytes % 0.3 % (0-4); Lymphocytes # 0.6 K/mcL (0.6-4.6); Lymphocytes % 17.6 %; Mean Corpuscular HGB Conc 32.9 g/dL (31.6-35.5); Mean Corpuscular Hemoglobin 31.2 pg (28.0-33.3); Mean Corpuscular Volume 94.7 fL (83.0-100.0); Mean Platelet Volume 10.7 fL (9.4-12.4); Monocytes # 0.4 K/mcL (0.0-1.3); Monocytes % 11.1 %; Platelet Count 117 K/mcL (140-400); Red Blood Count 3.59 M/mcL (3.82-4.97); Segmented Neutrophils % 69.8 %
[2018-04-25 04:55] LABS: Neutrophils # 2.4 K/mcL (1.6-8.9)
[2018-04-25 05:06] LABS: BUN/Creatinine Ratio 23 (6-26); Blood Urea Nitrogen 19 mg/dL (8-23); Calcium 9.1 mg/dL (8.6-10.3); Carbon Dioxide 29 mEq/L (23-29); Chloride 106 mEq/L (98-107); Glucose 100 mg/dL (70-105); Osmolality,Calculated 294 (280-300); Potassium 3.8 mEq/L (3.5-5.1); Sodium 141 mEq/L (136-145); eGFR For Non-African Americans > 60 (> 60)
[2018-04-25] MEDS: *HR* Enoxaparin 40 MG/0.4 ML SYRINGE SQ SCH (06:38)
--- NOTE | 2018-04-25 07:30 | Internal Med Progress Note ---
Date of Encounter: 04/25/18 Time of Encounter: 07:20 - Assessment and plan (1) Physical deconditioning Current Visit: Yes Status: Acute Assessment and plan: Continues to need therapies. Fatigue is an issue and may need to be decreased to a swing bed status. Continue therapy for now and reassess (2) Chronic constipation Current Visit: Yes Status: Chronic (3) S/P craniotomy Current Visit: Yes Status: Chronic (4) Oligodendroglioma Current Visit: Yes Status: Chronic (5) Expressive aphasia Current Visit: Yes Status: Chronic (6) Seizure disorder Current Visit: Yes Status: Chronic Assessment and plan: No seizures reported (7) Leukopenia Current Visit: Yes Status: Acute Assessment and plan: Mild leukopenia and stable at 3500. 70% neutrophils. Platelets improved Qualifiers: Leukopenia type: neutropenia Neutropenia type: secondary to cancer chemotherapy Qualified Code(s): D70.1 - Agranulocytosis secondary to cancer chemotherapy; T45.1X5A - Adverse effect of antineoplastic and immunosuppressive drugs, initial encounter - Subjective Interval history: Patient denies any acute symptoms. She thinks she slept well. She denies any cardiac respiratory symptoms. Denies any fevers or chills. She did not notice any back pain today when she was standing and walking with the therapist. She is a poor historian as she has aphasia and just does not know how to answer some of the questions. Nurses report that she has done well through the night. Therapist working with her today suggested the patient tires easily she may need to be transferred to a swing bed having less intensive and shorter therapy sessions - Constitutional Vitals: Temp Pulse Resp BP Pulse Ox 97.7 F 70 16 94/65 96 04/25/18 07:00 04/25/18 07:00 04/25/18 07:00 04/25/18 07:00 04/25/18 07:00 General appearance: Present: no acute distress. Absent: answers questions appropriately (she has expresive aphasia) - Respiratory Respiratory exam: Present: CTAB - Cardiovascular Cardiovascular exam: Present: RRR, +S1, +S2 - Extremities Exam Extremities exam: Absent: calf tenderness, pedal edema - Neurological Exam Neurological exam: Present: alert, CN II-XII intact Additional comments: It took a gait belt and therapist and walker to get her for the toilet to the wheelchair. Patient is very weak and has difficulties with navigating and turning. Appears to have mild right hemiplegia particular with right upper extremity for range of motion Internal Medicine: Result - Labs CBC & Chem 7: 04/25/18 04:40 04/25/18 04:40 Labs: Short CBC 04/25/18 Range/Units 04:40 WBC 3.5 L (4.3-11.1) K/mcL Hgb 11.2 L (11.5-15.4) g/dL Hct 34.0 L (35.3-44.9) % Plt Count 117 L (140-400) K/mcL Neutrophils # 2.4 (1.6-8.9) K/mcL BMP 04/25/18 04:40 Sodium 141 Potassium 3.8 Chloride 106 Carbon Dioxide 29 BUN 19 Creatinine 0.83 Glucose 100 Calcium 9.1 Labs have been reviewed. Still mildly neutropenic. Platelet count improved. - ABG Interpretation ABG results: PT/INR, D-dimer PT 11.3 Seconds (9.4-12.1) 04/15/18 06:57 Consult Discharge Plan - Plan Referrals: Arlyn Ford MD [Primary Care Provider] -
[2018-04-25] MEDS: Sennosides/Docusate Sodium TABLET PO SCH ×3 (08:06→21:15)
[2018-04-25] MEDS: levETIRAcetam 250 MG TABLET PO SCH ×4 (08:06→21:13)
[2018-04-25] MEDS: Pregabalin 75 MG CAPSULE PO SCH ×2 (08:06→21:14)
[2018-04-25] MEDS: Clobazam [Onfi] 10 MG PO SCH (13:14)
[2018-04-25] MEDS: lamoTRIgine 100 MG TABLET PO SCH (21:14)
[2018-04-26] MEDS: *HR* Enoxaparin 40 MG/0.4 ML SYRINGE SQ SCH (05:37)
[2018-04-26] MEDS: levETIRAcetam 250 MG TABLET PO SCH ×4 (07:48→20:59)
[2018-04-26] MEDS: Pregabalin 75 MG CAPSULE PO SCH ×2 (07:48→21:01)
[2018-04-26] MEDS: Sennosides/Docusate Sodium TABLET PO SCH ×2 (07:49→21:00)
[2018-04-26] MEDS: Clobazam [Onfi] 10 MG PO SCH (12:56)
--- NOTE | 2018-04-26 15:23 | Internal Med Progress Note ---
Date of Encounter: 04/26/18 Time of Encounter: 15:18 - Assessment and plan (1) Physical deconditioning Current Visit: Yes Status: Acute Assessment and plan: She continues with her PT and OT. She could not tolerate full Rehab services and is now in a swing bed. It was reported she had a good day today. Continue with the therapies. (2) Chronic constipation Current Visit: Yes Status: Chronic Assessment and plan: Patient had a good soft bowel movement today. (3) S/P craniotomy Current Visit: Yes Status: Chronic (4) Oligodendroglioma Current Visit: Yes Status: Chronic (5) Expressive aphasia Current Visit: Yes Status: Chronic (6) Seizure disorder Current Visit: Yes Status: Chronic Assessment and plan: No seizures reported. (7) Leukopenia Current Visit: Yes Status: Acute Assessment and plan: Leukopenia is stable. No fevers or focal signs of infection Qualifiers: Leukopenia type: neutropenia Neutropenia type: secondary to cancer chemotherapy Qualified Code(s): D70.1 - Agranulocytosis secondary to cancer chemotherapy; T45.1X5A - Adverse effect of antineoplastic and immunosuppressive drugs, initial encounter - Subjective Interval history: Patient denies any acute symptoms or problems. Denies any chest pain, palpitations, GI or symptoms. She is happy to report that she had a large soft bowel movement today. Therapist reports the patient had a "good day", she walked 50 feet with the walker with minimal assistance. She still has balance issues and drifted to the left side. Technically patient is in a swing bed and not full rehab because she could not tolerate the extended hours in the rehab unit. - Constitutional Vitals: Temp Pulse Resp BP Pulse Ox 98 F 75 18 103/53 95 04/26/18 07:13 04/26/18 07:13 04/26/18 07:13 04/26/18 07:13 04/26/18 07:13 General appearance: Present: no acute distress. Absent: answers questions appropriately (she has expresive aphasia, sometimes slow to respond if able at all) - Respiratory Respiratory exam: Present: CTAB - Cardiovascular Cardiovascular exam: Present: RRR, +S1, +S2 - GI/Abdominal GI/Abdominal exam: Present: soft. Absent: tenderness - Extremities Exam Extremities exam: Absent: calf tenderness, pedal edema, tenderness Internal Medicine: Result - Labs CBC & Chem 7: 04/25/18 04:40 04/25/18 04:40 - ABG Interpretation ABG results: PT/INR, D-dimer PT 11.3 Seconds (9.4-12.1) 04/15/18 06:57 Consult Discharge Plan - Plan Referrals: Arlyn Ford MD [Primary Care Provider] -
[2018-04-26] MEDS: Acetaminophen 325 MG TABLET PO PRN (18:03)
[2018-04-26] MEDS: lamoTRIgine 100 MG TABLET PO SCH (21:00)
[2018-04-27] MEDS: *HR* Enoxaparin 40 MG/0.4 ML SYRINGE SQ SCH (05:25)
[2018-04-27] MEDS: Pregabalin 75 MG CAPSULE PO SCH ×2 (08:26→20:44)
[2018-04-27] MEDS: levETIRAcetam 250 MG TABLET PO SCH ×4 (08:27→21:06)
[2018-04-27] MEDS: Sennosides 8.6 MG TABLET PO PRN (08:27)
[2018-04-27] MEDS: Sennosides/Docusate Sodium TABLET PO SCH ×2 (11:06→20:45)
[2018-04-27] MEDS: Acetaminophen 325 MG TABLET PO PRN (12:31)
[2018-04-27] MEDS: Clobazam [Onfi] 10 MG PO SCH (12:32)
[2018-04-27] MEDS: lamoTRIgine 100 MG TABLET PO SCH (20:44)
[2018-04-28] MEDS: *HR* Enoxaparin 40 MG/0.4 ML SYRINGE SQ SCH (06:07)
[2018-04-28] MEDS: Sennosides/Docusate Sodium TABLET PO SCH ×2 (08:41→21:22)
[2018-04-28] MEDS: Pregabalin 75 MG CAPSULE PO SCH ×2 (08:41→21:20)
[2018-04-28] MEDS: levETIRAcetam 250 MG TABLET PO SCH ×4 (09:47→21:21)
--- NOTE | 2018-04-28 12:16 | Internal Med Progress Note ---
Date of Encounter: 04/28/18 Time of Encounter: 12:30 - Assessment and plan (1) Weakness Current Visit: Yes Status: Inactive Assessment and plan: She is here for a PT OT RT goal is to return her to her home environment. She is deconditioned after receiving chemotherapy. Frequent falls at home. , likely will be here for a while to regain balance rehab meeting with family today. may need ecf placement (2) Chronic constipation Current Visit: Yes Status: Chronic Assessment and plan: Continue her on her home medication regimen and this is a chronic issue for her. (3) Mixed hyperlipidemia Current Visit: Yes Status: Acute (4) Osteoporosis Current Visit: No Status: Acute Qualifiers: Osteoporosis type: unspecified Presence of current pathological fracture: without current pathological fracture Qualified Code(s): M81.0 - Age-related osteoporosis without current pathological fracture (5) S/P craniotomy Current Visit: Yes Status: Chronic Assessment and plan: She has not having any pain from this.not a recent problem but chronic ongoing (6) Oligodendroglioma Current Visit: Yes Status: Chronic (7) Expressive aphasia Current Visit: Yes Status: Chronic Assessment and plan: Seems to be at her baseline. (8) Seizure disorder Current Visit: Yes Status: Chronic Assessment and plan: She has not had a seizure since October. Her home medications - Subjective Interval history: tired today no pain. no cp, no sob, no dizzy, constipation better than baseline but still presentparticipating in therapy. she is not progressing as well as therapy would like having a family meeting today to discuss long term care pharmacist plans. her mother is her primary caregiver - Constitutional Vitals: Temp Pulse Resp BP Pulse Ox 98.2 F 80 18 94/61 93 04/28/18 07:24 04/28/18 07:24 04/28/18 07:24 04/28/18 07:24 04/28/18 07:24 General appearance: Present: no acute distress. Absent: answers questions appropriately (she has expresive aphasia, sometimes slow to respond if able at all) - Head Head exam: Absent: normocephalic - Neck Neck exam general surgery: Present: supple, trachea midline - Respiratory Respiratory exam: Present: CTAB - Cardiovascular Cardiovascular exam: Present: RRR, +S1, +S2. Absent: systolic murmur - GI/Abdominal GI/Abdominal exam: Present: normal bowel sounds, soft, no peritoneal signs. Absent: distended, tenderness - Extremities Exam Extremities exam: Present: normal capillary refill, warm. Absent: pedal edema - Skin Skin exam: Present: dry, warm. Absent: rash Internal Medicine: Result - Labs CBC & Chem 7: 04/25/18 04:40 04/25/18 04:40 - ABG Interpretation ABG results: PT/INR, D-dimer PT 11.3 Seconds (9.4-12.1) 04/15/18 06:57 Consult Discharge Plan - Plan Referrals: Arlyn Ford MD [Primary Care Provider] -
[2018-04-28] MEDS: Clobazam [Onfi] 10 MG PO SCH (15:13)
[2018-04-28] MEDS: lamoTRIgine 100 MG TABLET PO SCH (21:22)
[2018-04-29] MEDS: *HR* Enoxaparin 40 MG/0.4 ML SYRINGE SQ SCH (05:27)
[2018-04-29] MEDS: levETIRAcetam 250 MG TABLET PO SCH ×4 (07:29→20:35)
[2018-04-29] MEDS: Sennosides/Docusate Sodium TABLET PO SCH ×2 (07:29→20:38)
[2018-04-29] MEDS: Clobazam [Onfi] 10 MG PO SCH (12:21)
[2018-04-29] MEDS: lamoTRIgine 100 MG TABLET PO SCH (20:35)
[2018-04-30] MEDS: *HR* Enoxaparin 40 MG/0.4 ML SYRINGE SQ SCH (05:06)
[2018-04-30] MEDS: Sennosides/Docusate Sodium TABLET PO SCH ×2 (07:26→21:04)
[2018-04-30] MEDS: levETIRAcetam 250 MG TABLET PO SCH ×4 (07:26→20:58)
--- NOTE | 2018-04-30 11:04 | Internal Med Progress Note ---
Date of Encounter: 04/30/18 Time of Encounter: 14:16 - Assessment and plan (1) Weakness Current Visit: Yes Status: Inactive (2) Chronic constipation Current Visit: Yes Status: Chronic (3) Mixed hyperlipidemia Current Visit: Yes Status: Acute (4) Osteoporosis Current Visit: No Status: Acute Qualifiers: Osteoporosis type: unspecified Presence of current pathological fracture: without current pathological fracture Qualified Code(s): M81.0 - Age-related osteoporosis without current pathological fracture (5) S/P craniotomy Current Visit: Yes Status: Chronic Assessment and plan: She has not having any pain from this.not a recent problem but chronic ongoing (6) Oligodendroglioma Current Visit: Yes Status: Chronic (7) Expressive aphasia Current Visit: Yes Status: Chronic Assessment and plan: worse today, no headache. will watch for now would not repeat ct scan unless other changes because very much like her seizures. resolved now (8) Seizure disorder Current Visit: Yes Status: Chronic - Subjective Interval history: more speech difficulty today no pain. no cp, no sob, no dizzy, constipation better than baseline but still participating in therapy. she is not progressing as well as therapy would like ecf planned. family to decide on where she is going - Constitutional Vitals: Temp Pulse Resp BP Pulse Ox 97.8 F 76 17 103/63 91 04/30/18 07:31 04/30/18 07:31 04/30/18 07:31 04/30/18 07:31 04/30/18 07:31 General appearance: Present: no acute distress. Absent: answers questions appropriately (she has expresive aphasia, sometimes slow to respond if able at all) - Head Head exam: Absent: normocephalic - Neck Neck exam general surgery: Present: supple, trachea midline - Respiratory Respiratory exam: Present: CTAB - Cardiovascular Cardiovascular exam: Present: RRR, +S1, +S2. Absent: systolic murmur - GI/Abdominal GI/Abdominal exam: Present: normal bowel sounds, soft, no peritoneal signs. Absent: distended, guarding - Extremities Exam Extremities exam: Present: normal capillary refill. Absent: pedal edema - Neurological Exam Neurological exam: Present: speech deficit - Skin Skin exam: Present: dry, warm. Absent: rash Internal Medicine: Result - Labs CBC & Chem 7: 04/25/18 04:40 04/25/18 04:40 - ABG Interpretation ABG results: PT/INR, D-dimer PT 11.3 Seconds (9.4-12.1) 04/15/18 06:57 Consult Discharge Plan - Plan Referrals: Arlyn Ford MD [Primary Care Provider] -
[2018-04-30] MEDS: Clobazam [Onfi] 10 MG PO SCH (12:31)
--- NOTE | 2018-04-30 14:21 | Physician Discharge Referral ---
ExtendedCare Referral Info Provider in Charge after Transfer: Other ([facility]) - Diagnosis (1) Weakness Priority: Primary Status: Inactive (2) Chronic constipation Priority: Secondary Status: Chronic (3) Mixed hyperlipidemia Priority: Secondary Status: Acute (4) Osteoporosis Priority: Secondary Status: Acute (5) S/P craniotomy Priority: Secondary Status: Chronic (6) Oligodendroglioma Priority: Secondary Status: Chronic (7) Expressive aphasia Priority: Secondary Status: Chronic (8) Seizure disorder Priority: Secondary Status: Chronic - Transfer Medications Home Medications: Clobazam [Onfi] 5 mg PO DAILY 10/25/16 [History] Lacosamide [Vimpat] 50 mg PO QID 10/25/16 [History] LevETIRAcetam [Keppra] 750 mg PO QID 10/25/16 [History] Pregabalin [Lyrica] 300 mg PO BID 10/25/16 [History] Sennosides [Senna] 8.6 mg PO BID 10/25/17 [History] lamoTRIgine [Lamictal] 150 mg PO HS tablet 11/07/17 [Rx] Docusate [Colace] 100 mg PO BID 04/14/18 [History] LORazepam [Ativan] 0.5 mg PO PRN PRN 04/14/18 [History] Sennosides [Senna] 8.6 mg PO BID PRN 04/14/18 [History] Allergies/Adverse Reactions: 3 Allergy/AdvReac Type Severity Reaction Status Date / Time divalproex sodium Allergy Anaphylaxis Verified 04/08/18 16:26 [From Depakote] - Respiratory Orders None Smoking Cessation: Smoking cessation has been advised. For more information, call the [place] Tobacco Quit Line at 8-544-UMAO-NOW. - Lab Orders Lab Orders: 2 Step Mantoux Test per State regulation, CBC, U/A, Ceasar 17, CXR yearly - Ancillary Orders May use pressure relief devices daily prn, May go on FELIX w/family/respon alliance party w /meds at nurse discretion PRN, May have alcoholic beverages, May consult with Dentist, Lens Grinding Machine Operator, Parts Counter Associate PRN - Advance Directives Code Status: Full Code - Mobility Orders Ambulate - Rehabiliation Orders Rehab Potential: Good Rehab Orders: ROM Exercises, Evaluation for Physical Therapy, Evaluation for Occupational Therapy, Evaluation for Speech Therapy - Treatments Skin tear care topically daily PRN per policy, May check for fecal impaction rectally daily PRN, Fleet enema rectally every other day PRN cleansing purposes - Diet Orders Regular CERTIFICATION: I certify that the transfer of the above named patient to an Extended Care Facility is necessary for the continuing treatment of the diagnosis listed. The above information is true and accurate reflection of patient's current condition. Confidential - Redisclosure prohibited without a patient's written consent.
[2018-04-30 15:24] LABS: Basophils % 0.2 %; Eosinophils % 0.9 %; Hematocrit 38.9 % (35.3-44.9); Immature Granulocytes % 0.2 % (0-4); Lymphocytes # 0.7 K/mcL (0.6-4.6); Lymphocytes % 15.5 %; Mean Corpuscular HGB Conc 33.4 g/dL (31.6-35.5); Mean Corpuscular Hemoglobin 31.8 pg (28.0-33.3); Mean Corpuscular Volume 95.1 fL (83.0-100.0); Mean Platelet Volume 11.2 fL (9.4-12.4); Monocytes # 0.4 K/mcL (0.0-1.3); Neutrophils # 3.5 K/mcL (1.6-8.9); Platelet Count 126 K/mcL (140-400); Red Blood Count 4.09 M/mcL (3.82-4.97); Red Cell Distribution Width 15.4 % (11.5-14.5); Segmented Neutrophils % 74.2 %
[2018-04-30 15:39] LABS: BUN/Creatinine Ratio 24 (6-26); Blood Urea Nitrogen 22 mg/dL (8-23); Calcium 9.7 mg/dL (8.6-10.3); Carbon Dioxide 23 mEq/L (23-29); Chloride 107 mEq/L (98-107); Glucose 106 mg/dL (70-105); Osmolality,Calculated 292 (280-300); Potassium 3.8 mEq/L (3.5-5.1); Sodium 139 mEq/L (136-145); eGFR For Non-African Americans > 60 (> 60)
[2018-04-30 15:42] LABS: Anisocytosis 1+ (Not Present); Platelet Estimate Decreased (Normal)
[2018-04-30] MEDS: lamoTRIgine 100 MG TABLET PO SCH (20:59)
[2018-05-01] MEDS: *HR* Enoxaparin 40 MG/0.4 ML SYRINGE SQ SCH (05:30)
[2018-05-01] MEDS: levETIRAcetam 250 MG TABLET PO SCH (10:14)
[2018-05-01] MEDS: Acetaminophen 325 MG TABLET PO PRN (10:14)
[2018-05-01] MEDS: Sennosides/Docusate Sodium TABLET PO SCH (10:14)
--- NOTE | 2018-05-01 12:58 | Discharge Summary ---
Date of Encounter: 05/01/18 Time of Encounter: 12:56 - Discharge Diagnosis (1) Weakness Priority: Primary Status: Inactive Comments: She came here for rehabilitation. She was evaluated by PT OT RT. She had a hard time progressing. She still lives 2 person assists she still has not regained much of her strength. The therapies wearing around making her tired she is not doing well with the daily requirements for therapy. She is not able to go home and take care of herself her mother who is older than her is not able to care for her either she is sad several falls at home. She was discharged to [facility] for long-term placement. (2) Chronic constipation Priority: Secondary Status: Chronic Comments: The current long-term problem for her there was not any change in his condition she takes her medicines as needed. (3) Mixed hyperlipidemia Priority: Secondary Status: Acute Comments: She is not on Medication no changes were made to this at this hospitalization (4) Osteoporosis Priority: Secondary Status: Acute Qualifiers: Osteoporosis type: unspecified Presence of current pathological fracture: without current pathological fracture Qualified Code(s): M81.0 - Age-related osteoporosis without current pathological fracture (5) S/P craniotomy Priority: Secondary Status: Chronic Comments: He did not have any pain associated with this this occurred in October 2017 for the second time. Her for an MRI on Saturday the . (6) Oligodendroglioma Priority: Secondary Status: Chronic Comments: She is Is scheduled for chemotherapy an MRI and an oncology follow-up on Saturday. (7) Expressive aphasia Priority: Secondary Status: Chronic Comments: She has chronic aphasia. It will wax and wane. It has been a little bit worse this hospitalization and it was her prior hospitalization (8) Seizure disorder Priority: Secondary Status: Chronic Hospital course: Ms. Moses is a 62 year old female - Time Spent with Patient Total time spent providing and/or coordinating discharge services: - Discharge Medications Home Medications: Clobazam [Onfi] 5 mg PO DAILY 10/25/16 [History] Lacosamide [Vimpat] 50 mg PO QID 10/25/16 [History] LevETIRAcetam [Keppra] 750 mg PO QID 10/25/16 [History] Pregabalin [Lyrica] 300 mg PO BID 10/25/16 [History] Sennosides [Senna] 8.6 mg PO BID 10/25/17 [History] lamoTRIgine [Lamictal] 150 mg PO HS tablet 11/07/17 [Rx] Docusate [Colace] 100 mg PO BID 04/14/18 [History] LORazepam [Ativan] 0.5 mg PO PRN PRN 04/14/18 [History] Sennosides [Senna] 8.6 mg PO BID PRN 04/14/18 [History] Acetaminophen [Tylenol] 650 mg PO Q6HR PRN tablet 05/01/18 [Rx] Enoxaparin [Lovenox] 40 mg SQ 0600 syringe 05/01/18 [Rx] Sennosides/Docusate Sodium [Senna Plus] 1 each PO BID tablet 05/01/18 [Rx] Allergies/Adverse Reactions: 3 Allergy/AdvReac Type Severity Reaction Status Date / Time divalproex sodium Allergy Anaphylaxis Verified 04/08/18 16:26 [From Depakote] Date of admission: 04/14/18 19:30 Primary care physician: Arlyn Ford MD Consults: 04/14/18 20:56 Consult to Occupational Therapy [CONS] Routine Comment: Evaluate, develop and implement POC Reason for Consult: eval / tx Does patient have active BEDREST order?: No Is patient medically & hemodynamically stable?: Yes Patient assessed for mobility or mobilized this visit?: No Consult to Physical Therapy [CONS] Routine Comment: Evaluate, develop and implement POC Reason for Consult: eval / tx Does patient have active BEDREST order?: No Is patient medically & hemodynamically stable?: Yes Patient assessed for mobility or mobilized this visit?: No Consult to Recreational Therapy [CONS] Routine Comment: Evaluate, develop and implement POC Consult to Recreational Sports Director [CONS] Routine Reason for SW Consult: d/c planning Consult to Speech Therapy [CONS] Routine Comment: Evaluate, develop and implement POC Reason for Consult: speech impairment Call Completed: Yes 04/28/18 13:34 Consult to Psychology [CONS] Routine Consulting Provider: Maida Herrera Reason for Consult: disease process Call Completed: Yes - Constitutional Vitals: Temp Pulse Resp BP Pulse Ox 98.3 F 83 17 93/60 99 05/01/18 07:00 05/01/18 07:00 05/01/18 07:00 05/01/18 07:00 05/01/18 07:00 General appearance: Present: no acute distress. Absent: answers questions appropriately (she has expresive aphasia, sometimes slow to respond if able at all) - Head Head exam: Absent: normocephalic - Neck Neck exam general surgery: Present: supple, trachea midline. Absent: lymphadenopathy - Respiratory Respiratory exam: Present: CTAB - Cardiovascular Cardiovascular exam: Present: RRR, +S1, +S2. Absent: systolic murmur - GI/Abdominal GI/Abdominal exam: Present: normal bowel sounds, soft, no peritoneal signs. Absent: mass, tenderness - Extremities Exam Extremities exam: Absent: pedal edema - Skin Skin exam: Present: dry, warm. Absent: rash - Patient Status Disposition: Transfer LTC Condition: Good Functional capacity at discharge: uses cane/walker Overall status at discharge: patient is not back to baseline - Discharge Instructions Follow Up With: Arlyn Ford MD [Primary Care Provider] - - Diet and Activity Activity: ambulate only with your walker, as per physical therapy Diet: advance to your usual diet
[2018-05-01 13:54] VITALS: BP 127/81
--- NOTE | 2018-05-07 09:11 | Psychological Evaluation ---
Date of Encounter: 05/07/18 Time of Encounter: 11:30 History of Present Illness History of present illness: Ms. Moses is a 62 year old female who has a past medical history of malignancy she has been undergoing chemotherapy for oligodendroglioma and she had a craniotomy which is her second craniotomy in October and underwent rehabilitation for that she had been doing well but had her chemotherapy she has had 4 rounds. After this past round she had following weakness she could not take care of herself at home. She was admitted up at [facility]. She is evaluated by physical therapy felt to be a good candidate for rehabilitation inpatient. She is admitted down here. She has not had any seizures since October. She has not had any loss of consciousness she did not get her with her falls but she has an abnormal gait she has generalized weakness and speech aphasia. She denies any pain nausea vomiting decreased appetite she is generally fatigued and tired. Past Medical History - Psychiatric History Additional Psychiatric History: Patient denies ny previous psychiatric treatment. Home Medications and Allergies Clobazam [Onfi] 5 mg PO DAILY 10/25/16 [History] Lacosamide [Vimpat] 50 mg PO QID 10/25/16 [History] LevETIRAcetam [Keppra] 750 mg PO QID 10/25/16 [History] Pregabalin [Lyrica] 300 mg PO BID 10/25/16 [History] Sennosides [Senna] 8.6 mg PO BID 10/25/17 [History] lamoTRIgine [Lamictal] 150 mg PO HS tablet 11/07/17 [Rx] Docusate [Colace] 100 mg PO BID 04/14/18 [History] LORazepam [Ativan] 0.5 mg PO PRN PRN 04/14/18 [History] Sennosides [Senna] 8.6 mg PO BID PRN 04/14/18 [History] Acetaminophen [Tylenol] 650 mg PO Q6HR PRN tablet 05/01/18 [Rx] Enoxaparin [Lovenox] 40 mg SQ 0600 syringe 05/01/18 [Rx] Sennosides/Docusate Sodium [Senna Plus] 1 each PO BID tablet 05/01/18 [Rx] 3 Allergy/AdvReac Type Severity Reaction Status Date / Time divalproex sodium Allergy Anaphylaxis Verified 04/08/18 16:26 [From [facility]] Social History - Social History Social History: Patient is with 2 daughters. - Alcohol Use Alcohol Use: none - Drug Use Drug Use: none Cognitive/Emotional Assessment - Cognitive Ability Level of Alertness: Alert Speech Pattern: Aphasic Additional Findings: Patient exhibits nonfluent Aphasia and verbal Apraxia. She was unable to answer questions and sighed with frustration at attempts. Able to express some spontaneous speech. Unable to assess cognition due to aphasia but appeared aware of surroundings and requests.She was confused with date however knew person and place. Assessment & Plan - Diagnosis (1) Expressive aphasia Diagnosis: Continue speech therapy (2) Adjustment disorder with mixed anxiety and depressed mood Diagnosis: No therapy recommended - Prognosis Prognosis: Fair - Treatment Plan Treatment Plan/Recommendations: NO further therapy recommended Procedures - Intervention Interventions: Supportive Counseling - Modality Modality: Psychotherapy 30 minutes - Participants Therapy Participant: Patient - Session Time Session Start Time: 11:30 Session Stop Time: 12:00
== END 2018-05-01 14:45 | DRG 945 ==
LOC: INPGRE 19:30
PROVIDERS: ADMIT Family Medicine; ATTEND Family Medicine